=== PATIENT | male | born 1935 | race Caucasian/White ===

== ENCOUNTER 2017-07-30 06:13 | Outpatient (CLI) | payer MEDICARE, OTHER ==
[~2017-07-30] VITALS: Ht 177.8 cm; Wt 93.6 kg
--- NOTE | ~2017-07-30 | HEMODYNAMI ---
PATIENT:DESTINI MATT MEDICAL RECORD: [id number] : 35 LOCATION:DCASEY ADMISSION DATE: 07/30/17 Generatedon:07/30/20178:42 Patient name: DESTINI MATT Patient #: [id number] SSN: : 1935 Date of study: 07/30/2017 Page: Of Hemodynamic Procedure Report Patient Data Patient Demographics Procedure consent was obtained First Name: DESTINI Gender: Male Last Name: SHAKA : 1935 [facility] Initial: C Age: 82 year(s) Patient #: [id number] Race: Unknown Additional ID: [id number] Contact details Address: [address] [place] [address] [facility] State: [place] City: [place] Zip code: [address] Past Medical History Allergies Allergen Reaction Date Comments Reported Other allergy 07/30/2017 Lipitpr, pravachol, zocor, cortico steroids. Admission Admission Data Admission Date: 07/30/2017 Admission Time: 6:13 Admit Source: Other Lab Results Lab Result Date: 07/30/2017 Lab Result Time: 6:55 Biochemistry Name Units Result Min Max BUN mg/dl 24 --(----)-* 7 18 Creatinine mg/dl 1.1 --(--*-)-- 0.6 1.3 CBC Name Units Result Min Max Hematocrit % 38 *-(----)-- 42 54 Hemoglobin g/dl 13.1 -*(----)-- 13.5 17.5 Procedure Procedure Types Cath Procedure Diagnostic Procedure LHC LHC w/Coronaries Sedation Charges Moderate Sedation up to 15 minutes Peripheral Cath Diagnostic Procedure Cath Peripheral Four Vessel Arteriogram Procedure Description Procedure Date Procedure Date: 07/30/2017 Procedure Start Time: 8:17 Procedure End Time: 8:41 Procedure Staff Name Function Celio Cunningham MD Performing Physician Ernie Wolff RT Monitor Freya Anthony RT Scrub Casey Lance RN Nurse Procedure Data Cath Procedure Fluoroscopy Diagnostic fluoroscopy Total fluoroscopy Time: 5.9 time: 5.9 min min Diagnostic fluoroscopy Total fluoroscopy dose: 868 dose: 868 mGy mGy Contrast Material Contrast Material Type Amount (ml) Isovue 300 133 Entry Location Entry Primary Successful Side Size Upsize Upsize Entry Closure Succes sful Closure Location (Fr) 1 (Fr) 2 (Fr) Remarks Device Remarks Femoral Right 5 Fr Exoseal artery Estimated blood loss: 5 ml Diagnostic catheters Device Type Used For End Catheter Placement MULTIPACK JL 4.0 5Fr Procedure catheter MULTIPACK 3DRC 5Fr Procedure catheter MULTIPACK Pigtail 5 Fr Procedure catheter DIAGNOSTIC IM 5Fr Procedure catheter ([id number]) Procedure Complications No complications Procedure Medications Medication Administration Route Dosage 0.9% NaCl I.V. 100 ml/hr Oxygen etCO2 Nasal cannula 2 l/min Heparin Flush Bag added to field 2 bags (1000units/500ml NS) Lidocaine 2% added to field 20 Versed I.V. 1 mg Fentanyl I.V. 50 mcg Hemodynamics Rest HGB: 13.1 (g/dl) Heart Rate: 73 (bpm) Pressure Samples Time Site Value (mmHg) Purpose Heart Use Rate(bpm) 8:27 LV 128/5,18 Snapshot 76 8:28 AO 103/55(72) Pullback 78 8:28 LV 118/3,13 Pullback 78 Gradients Valve Time Site 1 Site 2 Mean SEP/DFP Peak To Heart Use (mmHg) (sec/min) Peak Rate (mmHg) (bpm) Aortic 8:28 LV AO 18 7 15 78 118/3,13 103/55(72) Calculations Valve P-P Mean Valve Index Valve Source Name Gradient Area Flow (cm2) Aortic 15 18 15 18 Snapshots Pre Cath Intra NCS Post Cath Vital Signs Time Heart Resp SPO2 etCO2 NIBP Rhythm Pain Sedation Rate (ipm) (%) (mmHg) (mmHg) Status Level (bpm) 8:01:32 72 17 97 39 132/74(99) NSR 0 (11) 10(A) , No pain 8:06:11 75 18 98 37.5 127/76(93) NSR 0 (11) 10(A) , No pain 8:10:50 73 19 97 37.5 112/64(81) NSR 0 (11) 10(A) , No pain 8:15:26 74 19 97 36.8 104/62(78) NSR 0 (11) 10(A) , No pain 8:20:00 76 19 96 32.3 113/68(81) NSR 0 (11) 9(A) , No pain 8:24:37 78 18 96 35.2 113/64(90) NSR 0 (11) 9(A) , No pain 8:29:14 73 19 95 33 107/63(80) NSR 0 (11) 9(A) , No pain 8:33:50 73 19 95 33.8 116/65(90) NSR 0 (11) 10(A) , No pain 8:38:27 71 18 96 35.2 112/66(91) NSR 0 (11) 10(A) , No pain Medications Time Medication Route Dose Verified Delivered Reason Notes Effe ctiveness by by 8:00:52 0.9% NaCl I.V. 100 Casey Casey Per ml/hr Casi Lance physician RN RN 8:01:02 Oxygen etCO2 2 Casey Casey Per Nasal l/min Casi Lance physician cannula RN RN 8:01:15 Heparin Flush added 2 Casey Casey used for Bag to bags Lorigan Casi procedure (1000units/500ml field RN RN NS) 8:01:27 Lidocaine 2% added 20ml Casey Casey for local to vial Lorigan Lorigan anesthetic field RN RN 8:11:44 Versed I.V. 1 mg Casey Casey for Lorigan Lorigan sedation RN RN 8:11:53 Fentanyl I.V. 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 7:38:29 H&P Date Dictated: 07/28/2017 Within 30 days and on chart., H&P Addendum completed by physician on day of procedure. (MUST COMPLETE FOR ALL OUTPATIENTS). 7:39:07 Lab Result : BUN 24 mg/dl 7:39:07 Lab Result : Creatinine 1.1 mg/dl 7:39:07 Lab Result : Hematocrit 38 % 7:39:07 Lab Result : Hemoglobin 13.1 g/dl 7:39:39 Casey Lance RN sent for patient. Start room use. 7:44:49 Patient received from Pre/Post Procedure Room to CCL 1 Alert and oriented. Tansferred to table in Supine position. 7:44:50 Warm blankets applied, and griselda hugger turned on for patient comfort. 7:44:51 Correct patient and procedure confirmed by team. 7:44:51 ECG and BP/O2 sat monitors applied to patient. 8:00:40 Vital chart was started 8:00:52 0.9% NaCl 100 ml/hr I.V. was administered by Casey Lance RN; Per physician; 8:01:02 Oxygen 2 l/min etCO2 Nasal cannula was administered by Casey Lance RN; Per physician; 8:01:15 Heparin Flush Bag (1000units/500ml NS) 2 bags added to field was administered by Casey Lance RN; used for procedure; 8:01:27 Lidocaine 2% 20ml vial added to field was administered by Casey Lance RN; for local anesthetic; 8:01:49 Baseline sample Acquired. 8:01:52 Rhythm: sinus rhythm 8:01:54 Full Disclosure recording started 8:01:55 Pre-procedure instructions explained to patient. 8:01:56 Pre-op teaching completed and patient verbalized understanding. 8:01:57 Family in waiting room. 8:01:58 Patient NPO since Midnight. 8:02:41 Patient allergic to Other allergyLipitpr, pravachol, zocor, cortico steroids. 8:02:43 Is the patient allergic to Iodine/contrast media? Yes. 8:02:44 Was the patient premedicated? Yes 8:02:45 Is patient on blood thinner?No 8:02:47 Patient diabetic? Yes. 8:02:49 If diabetic: On Metformin? Yes 8:03:00 If on Metformin: Last Dose? 07/23/2017 8:03:03 Previous problem with sedation/anesthesia? No ? 8:03:04 Snore? Yes 8:03:05 Sleep apnea? No 8:03:06 Deviated septum? No 8:03:06 Opens mouth fully? Yes 8:03:07 Sticks out tongue? Yes 8:03:13 Airway obstruction? Yes COPD 8:03:51 Dentures? No ? 8:03:58 Pre procedure: left posterior tibial pulse 1+ Palpable, but thready & weak; easily obliterated 8:04:04 Pre procedure: right dorsailis pedis pulse 2+ Normal; easily identifiable; not easily obliterated 8:04:10 Patient pain scale 0/10 ?. 8:04:20 IV patent on arrival in left hand with 0.9% NaCl at [facility]. 8:04:22 Lab results completed and on chart. 8:04:25 Bilateral groins area was prepped with chlora-prep and draped in sterile fashion 8:04:26 Alarms reviewed by R. N. 8:04:27 Sharps counted by scrub and verified by R.N. 8:04:29 Use device set Femoral Dx 8:04:29 ACIST Syringe (46965) opened to sterile field. 8:04:30 Bag Decanter (2002S) opened to sterile field. 8:04:30 Medline Cath Pack ([id number]) opened to sterile field. 8:04:35 ACIST Hand Control (85681) opened to sterile field. 8:04:35 ACIST Manifold (77854) opened to sterile field. 8:04:36 Tegaderm 4 x 4 (1626W) opened to sterile field. 8:04:39 SHEATH Prelude 5Fr 0.035 (QTK-4M-21-035) opened to sterile field. 8:04:40 DIAGNOSTIC WIRE .035 260cm J wire (423097) opened to sterile field. 8:04:41 DIAGNOSTIC Multipack 5Fr catheter set ([id number]) opened to sterile field. 8:08:28 Zero performed for pressure channel P1 8:11:17 Physician arrived 8:11:17 --------ALL STOP TIME OUT------ 8:11:18 Final Timeout: patient, procedure, and site verified with staff and physician. All members of the team are in agreement. 8:11:19 Bilateral groins site verified by team. 8:11:22 Physical assessment completed. ASA score P 2 - A patient with mild systemic disease as per Celio Cunningham MD. 8::26 Sedation plan: IV Moderate Sedation Medication:Versed, Fentanyl 8:11:44 Versed 1 mg I.V. was administered by Casey Lance RN; for sedation; 8::53 Fentanyl 50 mcg I.V. was administered by Casey Lance RN; for sedation; 8:17:41 Procedure started. 8:17:46 Local anesthetic to right femoral artery with Lidocaine 2% by Celio Cunningham MD.INITIAL ACCESS ONLY 8:19:02 A 5 Fr sheath was inserted into the Right Femoral artery 8:19:32 A MULTIPACK JL 4.0 5Fr catheter was advanced over the wire and used for Procedure. 8::32 LCA angiography performed. 8::41 Catheter exchanged over wire. 8::46 A MULTIPACK 3DRC 5Fr catheter was advanced over the wire and used for Procedure. 8:24:20 RCA angiography performed. 8:25:30 Catheter exchanged over wire. 8:26:01 A MULTIPACK Pigtail 5 Fr catheter was advanced over the wire and used for Procedure. 8:27:30 LV gram done using KAUR 8::32 Injector settings: Ml/sec: 10, Volume: 20, 8:27:38 EF : 60 % 8:28:04 Catheter exchanged over wire. 8:28:08 A DIAGNOSTIC IM 5Fr catheter ([id number]) was advanced over the wire and used for Procedure. 8:30:17 Right subclavian angiography performed 8:30:21 Right carotid angiography performed. 8:34:49 Left subclavian angiography performed 8:35:01 left vert angiography performed. 8:36:59 Catheter removed. 8:37:03 EXOSEAL 5Fr (EX500) opened to sterile field. 8:37:18 Sheath removed intact; hemostasis achieved with Exoseal to the Right Femoral artery. 8:37:20 Procedure ended.(Physican Out) 8:39:29 Fluoroscopy time 05.90 minutes. 8:39:33 Fluoroscopy dose: 868 mGy 8:39:33 Flurop Dose total: 868 8:39:38 Contrast amount:Isovue 300 133ml. 8:39:39 Sharps counted by scrub and verified by R.N. 8:39:40 Insertion/operative site no bleeding no hematoma. 8:39:42 Post-op/insertion site Right Femoral artery dressed using a 4 x 4 and Tegaderm. 8:39:47 Post right femoral artery:stable, soft, clean and dry 8:39:48 Post Procedure Pulses reassessed and unchanged 8:39:50 Post-procedure physical assessment completed. ASA score P 2 - A patient with mild systemic disease as per Celio Cunningham MD. 8:39:56 Post procedure rhythm: unchanged. 8:39:57 Estimated blood loss: 5 ml 8:39:59 Post procedure instruction explained to patient.Patient verbalizes understanding. 8:39:59 Patient needs reinforcement of post procedure teaching. 8:40:11 Procedure type changed to Cath procedure, Diagnostic procedure, LHC, LHC w/Coronaries, Sedation Charges, Moderate Sedation up to 15 minutes, Peripheral Cath Diagnostic Procedure, Cath Peripheral, Four Vessel Arteriogram 8:40:42 Procedure and supply charges have been captured, reviewed, submitted and are correct. 8:40:43 Procedure Complication : No complications 8:40:45 Vital chart was stopped 8:40:45 See physician's report for complete and final results. 8:40:47 Report given to Pre/Post Procedure Room. 8:41:03 Patient transfered to Pre/Post Procedure Room with Stretcher. 8:41:05 Procedure ended. 8:41:05 Full Disclosure recording stopped 8:41:26 End room use (Document Last) Device Usage Item Name Manufacture Quantity Catalog Number Hospital Part Current M inimal Lot# / Charge Number Stock Stock Serial# Code ACIST Syringe Acist 1 60871 150270 487794 [id number] 2 0 (24015) [employer] Bag Decanter Microtek 1 2001S 865993 26424 048935 5 () Medical Inc. Medline Cath Cardinal 1 [id number] 083995 27772 885694 5 [facility] ([id number]) ACIST Hand Acist 1 82256 749767 440781 195495 5 Control (51197) [employer] ACIST Manifold Acist 1 32186 547741 570075 797715 5 (86263) [employer] Inc Tegaderm 4 x 4 3M 1 1626W 360315 694444 274079 5 (1626W) SHEATH Prelude Merit 1 NPZ-6W-68-035 081316 777720 365058 5 5Fr 0.035 Medical (SSD-8N-63-035) DIAGNOSTIC WIRE St Alejandro 1 167698 884058 460689 335321 3 0 .035 260cm J wire (673077) DIAGNOSTIC Cardinal 1 [id number] 294406 20115 064414 3 0 Multipack 5Fr Health catheter set (NV9856) MULTIPACK JL Cardinal 1 248498 5 4.0 5Fr Health catheter MULTIPACK 3DRC Cardinal 1 260206 5 5Fr catheter Health MULTIPACK Cardinal 1 [id number] 5 Pigtail 5 Fr Health catheter DIAGNOSTIC IM Cardinal 1 [id number] 864403 541328 951185 5 5Fr catheter Health (350741M) EXOSEAL 5Fr Cardinal 1 EX500 090429 364459 683730 1 0 (EX500) Health Signature Audit [place] Stage Time Signature Unsigned Intra-Procedure 07/30/2017 Ernie Wolff 8:42:49 AM RT(R) Signatures Monitor : Ernie Wolff RT Signature : Date : Time : [place] [id number] [place] [address]
[~2017-07-30 06:13] MED LIST: DIOVAN160 MG PO
[2017-07-30] MEDS ORDERED: LOPRESSOR25 MG PO (06:22)
[2017-07-30] MEDS ORDERED: CARDURA1 MG PO (06:23)
[2017-07-30] MEDS ORDERED: BAYER CHEWABLE81 MG PO (06:23)
[2017-07-30] MEDS ORDERED: ZETIA10 MG PO (06:23)
[2017-07-30] MEDS ORDERED: CO Q-1050 MG (06:24)
[2017-07-30] MEDS ORDERED: GLUCOPHAGE500 MG PO (06:24)
[2017-07-30] MEDS ORDERED: OCUVITE TABLET1 TA1 PO (06:24)
[2017-07-30 06:44] VITALS: BP 164/90; Ht 177.8 cm; Wt 93.6 kg
[2017-07-30 07:04] LABS: HEMOGLOBIN 13.1 g/dL (13.5-17.5); MCH 33.7 pg (26.0-34.0); MCHC 34.5 g/dL (31.0-37.0); MCV 97.7 fL (80.0-100.0); MEAN PLATELET VOLUME 10.6 fL (7.4-10.4); PLATELET COUNT 111 10x3/uL (130-400); RBC 3.89 10x6/uL (4.20-6.10); RDW 12.5 % (11.5-14.5); WBC 6.7 10x3/uL (4.8-10.8)
[2017-07-30 07:16] LABS: ANION GAP 12.4 mmol/L (8-16); CARBON DIOXIDE 25.9 mmol/L (21.0-32.0); CREATININE - SERUM 1.1 mg/dL (0.6-1.3); POTASSIUM - SERUM 4.3 mmol/L (3.5-5.1)
[2017-07-30 08:19] LABS: LYMPHOCYTES 52 % (15-50); MONOCYTES 14 % (2-11); NEUTROPHILS 32 % (40-80)
[2017-07-30 08:20] LABS: PLATELET ESTIMATE DECREASED; ROULEAUX OCC
== END 2017-07-30 11:58 | disposition home or self-care (01) ==
LOC: D.CATH 06:13
PROVIDERS: Internal Medicine Cardiovascular Disease
DX: I25.119 Atherosclerotic heart disease of native coronary artery with unspecified angina pectoris (principal); R55 Syncope and collapse; Z01.812 Encounter for preprocedural laboratory examination

== ENCOUNTER → 2017-08-05 09:07 | Outpatient (CLI) | payer MEDICARE, OTHER ==
[2017-07-30 06:44] VITALS: BMI 29.6
[~2017-08-05 09:07] MED LIST changes: +ATROVENT 0.02%2.5 ML UPD; +BAYER CHEWABLE81 MG PO; +CARDURA1 MG PO; +CO Q-1050 MG; +COLACE100 MG PO; +CORDARONE200 MG PO; +DULCOLAX10 MG/SUPP RC; +ELIQUIS5 MG PO; +FLORAJEN3 CAPS460 MG PO; +GLUCOPHAGE500 MG PO; +LASIX40 MG PO; +LEVAQUIN750 MG PO; +LOPRESSOR25 MG PO; +METAMUCIL PACKE1 PKT PO; +OCUVITE TABLET1 TA1 PO; +ROBITUSSIN DM 110 ML PO; +TESSALON PERLE100 MG PO; +VOLTAREN100 GM TOPICAL; +XOPENEX 0.0.63 MG/3 UPD; +ZETIA10 MG PO
== END | disposition home or self-care (01) ==
LOC: D.CT 09:07
DX: I65.23 Occlusion and stenosis of bilateral carotid arteries (principal)

== ENCOUNTER 2017-08-14 05:00 | Inpatient (IN) | payer MEDICARE, OTHER ==
[2017-08-13 12:40] LABS: BASOPHILS 0.2 % (0-2); EOSINOPHILS 3.2 % (0-7); HEMATOCRIT 38.5 % (42.0-54.0); HEMOGLOBIN 13.2 g/dL (13.5-17.5); IMMATURE GRANULOCYTES 0.2 % (0-5); LYMPHOCYTES 61.5 % (15-50); MCH 33.6 pg (26.0-34.0); MCHC 34.3 g/dL (31.0-37.0); MEAN PLATELET VOLUME 10.9 fL (7.4-10.4); MONOCYTES 6.8 % (2-11); NEUTROPHILS 28.1 % (40-80); PLATELET COUNT 106 10x3/uL (130-400); RBC 3.93 10x6/uL (4.20-6.10); RDW 12.5 % (11.5-14.5); WBC 5.3 10x3/uL (4.8-10.8)
[2017-08-13 12:42] LABS: APPEARANCE CLEAR (CLEAR); BILIRUBIN NEGATIVE (NEGATIVE); COLOR YELLOW (YELLOW); GLUCOSE NEGATIVE (NEGATIVE); KETONE NEGATIVE (NEGATIVE); NITRITE NEGATIVE (NEGATIVE); PROTEIN NEGATIVE (NEGATIVE); UROBILINOGEN NORMAL (NORMAL)
[2017-08-13 12:54] LABS: APTT 29.1 SECONDS (22.8-39.4); INR 0.97 (0.85-1.17); PROTIME 12.5 SECONDS (11.6-15.0)
[2017-08-13 13:17] LABS: ALBUMIN 3.6 g/dL (3.4-5.0); ALKALINE PHOSPHATASE 82 U/L (46-116); ALT (SGPT) 63 U/L (10-68); CALC OSMOLALITY 279 mosm/kg (275-300); CARBON DIOXIDE 30.1 mmol/L (21.0-32.0); CHLORIDE - SERUM 104 mmol/L (98-107); CHOLESTEROL, TOTAL 247 mg/dL (0-200); PHOSPHOROUS 3.3 mg/dL (2.5-4.9); POTASSIUM - SERUM 4.1 mmol/L (3.5-5.1); SODIUM 139 mmol/L (136-145); T4 THYROXIN - FREE 1.01 ng/dL (0.76-1.46); THYROID STIMULATING HORMONE 2.26 uIU/mL (0.36-3.74); UREA NITROGEN 14 mg/dL (7-18); URIC ACID 5.1 mg/dL (2.6-7.2); eGFR NON AFRICAN AMERICAN 76 mL/min (90-120)
[2017-08-13 13:26] LABS: GLUCOSE 109 mg/dL (74-106)
[~2017-08-14] VITALS: Ht 177.8 cm; Wt 99.1 kg
[2017-08-14] VITALS (38 sets, daily range): BP systolic 66–146; BP diastolic 42–85; BMI 29.6; BMI 32.0
--- NOTE | ~2017-08-14 | CN ---
PATIENT NAME:DESTINI NAIR MEDICAL RECORD: [id number] : 35 LOCATION:[facility].CV02 ADMIT DATE: 08/14/17 ACCOUNT: [id number] CONSULTING PHYSICIAN: BLAYNE ZAVALETA MD REFERRING PHYSICIAN: TONY GODDARD MD DATE OF CONSULTATION: 08/19/2017 CONSULT REQUESTING PHYSICIAN: Tony Goddard MD REASON FOR CONSULTATION: Acute respiratory distress. HISTORY OF PRESENT ILLNESS: Mr. Nair is an 82-year-old gentleman who has a CABG on 14 of August. He was doing fairly, today he was sitting in his chair and when the patient went to bed, the patient was dyspneic and shortness of breath. Chest radiograph showed pulmonary edema. Denies any fever and chill, no night sweats. REVIEW OF SYSTEMS: As in history of present illness. PAST MEDICAL HISTORY: 1. Coronary artery disease. 2. Peripheral vascular disease. 3. Osteoarthritis. 4. CA of prostate. 5. History of transient ischemic attack. 6. Diabetes mellitus. 7. Hypertension. 8. Hyperlipidemia. 9. Peripheral neuropathy. 10. Tricuspid regurgitation. PAST SURGICAL HISTORY: 1. He has a prostatectomy, now he is status post CABG. 2. He has a knee arthroscopic surgery. ALLERGIES: ALLERGIC TO CRESTOR, HYDROCHLOROTHIAZIDE, LIPITOR, LISINOPRIL, AND NYSTATIN. MEDICATIONS: [employer] is reviewed. PERSONAL AND SOCIAL HISTORY: The patient is an ex-smoker. He is a nondrinker. FAMILY HISTORY: Noncontributory. PHYSICAL EXAMINATION: GENERAL: Now, the patient is now lying comfortably in bed. He is not in acute distress, wearing a BiPAP machine. VITAL SIGNS: The blood pressure is 113/57, pulse is 94, respiration is 33, temperature of 100.4, SpO2 is 100% on BiPAP 40% oxygen. HEENT: Conjunctivae are pink. Sclerae are not icteric. NECK: Supple, no JVD. CHEST: The chest excursion is minimal and both have bilateral crackles. No wheezing. HEART: Rhythm regular, normal sound, no murmur. ABDOMEN: Soft, bowel sounds present. No hepatosplenomegaly. CONSULT REPORT [id number] DESTINI NAIR RECTAL: Deferred. EXTREMITIES: No cyanosis, no clubbing, 1+ pedal edema. CENTRAL NERVOUS SYSTEM: The patient is awake and alert. There are no obvious cranial nerve abnormality. The gait was not tested. IMPRESSION: 1. Acute hypoxic respiratory failure. 2. Pulmonary edema, possible fluid overload on the cardiac echo of the patient and normal left ventricular function, possible diastolic dysfunction. 3. Status post CABG on the 14 of August. 4. Coronary artery disease. 5. Suspect chronic obstructive pulmonary disease with a history of smoking. 6. Peripheral vascular disease. RECOMMENDATION: 1. Lasix 40 mg p.r.n. 2. Change the albuterol nebulizer p.r.n. Start him on Xopenex and ipratropium nebulizer q.6 hourly. 3. Hold steroid. 4. Continue Protonix. 5. Deep venous thrombosis prophylaxis. 6. Follow up on labs and chest radiograph. Discussed with Dr. Goddard. Dr. Goddard, thank you for involving me in the care of Mr. Nair. TRANSINT:[id number] Voice Confirmation ID: [id number] DOCUMENT ID: [id number] BLAYNE ZAVALETA MD at 1218 CC: [id number] DICTATION DATE: 08/19/17 1646 PATIENT SERVICES MANAGER: 08/19/17 1706 ADM IN [facility] [address] [id number]
--- NOTE | ~2017-08-14 | OP ---
PATIENT NAME: DESTINI MATT MEDICAL RECORD: [id number] :35 LOCATION:D.I D.CV02 ADMISSION DATE:08/14/17 SURGEON: TONY CAMARGO MD DATE OF OPERATION: 08/14/2017 SURGEON: Tony Camargo MD ANESTHESIA: General endotracheal, Dr. Barnett. OPERATION PERFORMED: 1. Coronary artery bypass. 2. Left internal thoracic, left anterior descending. 3. Reverse saphenous vein graft to the first diagonal. 4. Reverse saphenous vein graft to the obtuse marginal coronary artery. PREOPERATIVE DIAGNOSES: Occlusive coronary artery disease with angina equivalent shortness of breath. POSTOPERATIVE DIAGNOSES: Occlusive coronary artery disease with angina equivalent shortness of breath. INDICATION FOR OPERATION: Severe occlusive coronary artery disease. FINDINGS OF THE OPERATION: The left anterior descending was intramyocardial, but was a 2-mm graftable vessel. The first diagonal was severely and diffusely diseased proximally, but distally, intra-myocardially, there was a 3-mm vessel and graftable. The first obtuse marginal was a 1.5-mm vessel and graftable. The ramus was not identified. The lesion in the posterior descending coronary artery was too distal to bypass. ESTIMATED BLOOD LOSS: Cell Saver was used. DESCRIPTION OF PROCEDURE: After informed consent, adequate preoperative medication evaluation, the patient was brought to the operating room and placed on the table in the supine position. After induction of general endotracheal anesthesia and application of appropriate monitoring devices, the chest, neck, abdomen, and both legs were prepped and draped in sterile field, utilizing Betadine scrub, alcohol, and Betadine solution, a Betadine-impregnated drape was also used. Saphenous vein was harvested from right leg through small transverse incisions. Vein was repaired. The leg was closed over drains utilizing 3-0 Vicryl and skin cely. A median sternotomy incision was used and dissection carried down the fascia. Hemostasis maintained with electrocautery. The sternum was divided, the innominate vein was identified and protected. Left internal thoracic was taken down and prepared for grafting. The patient was given a calculated dose of heparin, cannulated in a standard fashion utilizing one aortic, one two-stage cannula in the atrium and inferior vena cava. The patient was placed on cardiopulmonary bypass, cooled to 32 degrees centigrade. A cross-clamp was placed just proximal to the aortic cannula. The patient was given cardioplegic solution through the aortic root. The patient was given a cold induction and cold maintenance. The patient was given cold intermittent cardioplegic solution throughout the procedure through the root, through the grafts or a combination of both. The first vessel to be grafted was the obtuse marginal, it was grafted end-to-side utilizing a running 7-0 Prolene suture. The grafts were measured back to the aorta and a proximal anastomosis fashioned utilizing running 6-0 Prolene suture. Next, the first diagonal was grafted OPERATIVE REPORT [id number] DESTINI MATT end-to-side utilizing a running 7-0 Prolene suture. Grafts were measured back to the aorta and a proximal anastomosis fashioned utilizing running 6-0 Prolene suture. Next, left internal thoracic was sutured to the left anterior descending end-to-side utilizing a running 8-0 Prolene suture. Pedicle was attached to epicardium with 6-0 Prolene suture. All maneuvers to remove trapped air were performed. The patient was given warm cardioplegic reperfusion and controlled reperfusion. The patient rewarmed to 37 degrees centigrade. Two atrial and 2 ventricular pacing wires were placed in the heart and brought through the epigastric area. The patient was weaned cardiopulmonary bypass. After being stable off bypass, he was given calculated dose of protamine to reverse the heparin. Hemostasis was achieved. A #40 right angle and #36 chest tubes were brought in through the epigastric area and placed in mediastinum. A separate 19 Manny was placed in the left hemithorax connected under water seal and suction. Chest was again irrigated. Instrument count and sponge count were correct times 2. Chest was closed in layers utilizing #7 wire on the sternum, #2 Vicryl in linea alba and pectoralis fascia. Subcutaneous tissue was approximated with 3-0 Vicryl and skin approximated with 3-0 subcuticular Vicryl. Sterile dressings were applied. The patient tolerated the procedure well and was transferred to CV ICU in satisfactory condition. TRANSINT:[id number] Voice Confirmation ID: [id number] DOCUMENT ID: [id number] TONY CAMARGO MD at 1358 CC: [id number] DICTATION DATE: 08/14/17 1438 SCIENCE MANAGER: 08/14/17 1518 ADM IN [place] [id number]
--- NOTE | ~2017-08-14 | EC ---
PATIENT:DESTINI MATT DATE OF SERVICE: 08/14/17 SEX: M MEDICAL RECORD: [id number] DATE OF : 35 [facility] AGE OF PATIENT: 82 ADMISSION DATE: 08/14/17 REFERRING PHYSICIAN: INTERPRETING PHYSICIAN: SARAH BARBA MD ECHOCARDIOGRAM REPORT ECHO CHARGES 5 ECHO LIMITED Date: 08/15 CLINICAL DIAGNOSIS: ASSESS FOR PERICARDIAL EFF, POST CABG ECHOCARDIOGRAPHIC MEASUREMENTS (adult normal given) AC root (d.<3.7cm) cm LV Septum d (<1.2 cm> cm Valve Excursion cm LV Septum (systole) cm Left Atria (s.<4.0cm> cm LVPW d(<1.2cm) cm RV (d.<2.3cm) cm LVPW (sytole) cm LV diastole(<5.6CM) cm MV E-F(>70mm/sec) cm LV systole cm LVOT Diameter cm MV exc.(>10mm) cm Est.ejection fraction (50-75%) % DOPPLER: LVIT cm/sec A cm/sec E cm/sec LA cm/sec RVSP mmHg LVOT cm/sec AOP1/2T m/s Asc. Ao cm/sec RVOT cm/sec RA cm/sec PA cm/sec AV Gradient Peak mmHg AV Mean mmHg AV Area cm MV Gradient Peak mmHg MV Mean mmHg MV Area cm COMMENTS: RUPESH Director Experimental Medicine: 2 NALLELY LOPEZ Component Technician: 4 Dr. Barba TAPE# PACS Pericardial Effusion N DATE OF SERVICE: PROCEDURE: Transthoracic echocardiogram, limited study. FINDINGS: Images were very poor, but appears that the LV function is grossly normal. There is no obvious pericardial effusion. Again, this is a very poor echocardiogram. Contrast evaluation may be helpful if clinically indicated. TRANSINT:[id number] Voice Confirmation ID: [id number] DOCUMENT ID: [id number] ECHOCARDIOGRAM REPORT [id number] SHAKADESTINI SARAH OLIVO MD at 0927 CC: [id number] DICTATION DATE: 08/16/17 1050 CARDIOVASCULAR TECHNICIAN: 08/16/17 1108 ADM IN [id number] [place] [address]
--- NOTE | ~2017-08-14 | TEE ---
PATIENT:DESTINI MATT MEDICAL RECORD: [id number] LOCATION:[place] [address] AGE OF PATIENT: 82 ADMISSION DATE: 08/14/17 SEX: M REFERRING PHYSICIAN: INTERPRETING PHYSICIAN: ANGY PEÑA MD TRANSESOPHAGEAL ECHOCARDIOGRAM Date: 08/14/17 FRANCISCO JAVIER CHARGE Y INDICATIONS: CABG PREMEDICATIONS: PATIENT'S RESPONSE PROCEDURE DOPPLER MEASUREMENTS: LVIT LA PA RA LVOT RVOT Asc. Ao AV Gradient Peak AV Mean AV Area MV Gradient Peak MV Mean MV Area INTERPRETATION: Doppler: 2-D: EF 60+ COLOR FLOW DOPPLER TRACE MR NORMAL SALINE STUDY: MISCELLANOUS: DIAGNOSIS: PLAN: Agriculture Department Chair:Boo Cunningham Drone Software Development Engineer: Boo LOPEZ COMMENTS: RUPESH DATE OF SERVICE: 08/14/2017 PROCEDURE: Transesophageal echo evaluation of valvular structures during bypass surgery. FINDINGS: 1. Left ventricular chamber size is within normal limits. Left ventricular systolic function is normal. Overall ejection fraction estimated at 60%. 2. Left atrium, right atrium, and right ventricle chamber sizes are within TRANSESOPHAGEAL ECHOCARDIOGRAM REPORT [id number] DESTINI MATT normal limits. 3. Valvular structures have normal structure and motion. 4. Doppler interrogation reveals only trace mitral regurgitation, no other valvular insufficiency or stenosis. 5. No evidence of pericardial effusion or left ventricular thrombus. TRANSINT:[id number] Voice Confirmation ID: [id number] DOCUMENT ID: [id number] at 1713 CC: [id number] DICTATION DATE: 08/14/17 1058 ROLL RECLAIMER: 08/14/17 1106 ADM IN [place] [id number] [place] [address]
--- NOTE | ~2017-08-14 | HP ---
PATIENT: DESTINI MATT MEDICAL RECORD: [id number] ACCOUNT: [id number] LOCATION:[facility].CV02 : 35 ADMISSION DATE: 08/14/17 HISTORY AND PHYSICAL EXAMINATION DESTINI Turner (82yo, M) ID# [id number]. Date/Time08/11/2017 11:12BQQQI44/27/193[facility] Dept.NP_[facility] ClinicProviderEDKAILEY GODDARD MDInsuranceMed Primary: [place]ICARE-[place] (MEDICARE) Insurance # : [id number] Referring Provider Name : CLAUDIA TOLEDO Employer Name : UNKNOWN Med Secondary: WPAS (MEDICARE SUPPLEMENT) Insurance # : [id number] Employer Name : UNKNOWN Prescription: [employer] - This member could not be found in the payer's files. Please verify coverage and all member demographic information. Chief Complaint Coronary artery disease, Carotid stenosis Patient's Care Team Referring Provider (): CLAUDIA TOLEDO: [address] [place] [phone], , Gelatin Maker Utility: FE ELIZALDE MD: [address] [place] [phone], , Patient's Pharmacies [facility] (ERX): [phone] [facility] [id number], , Vitals BP:158/98 sitting R arm 08/11/2017 11:38 am 182/92 sitting L arm 08/11/2017 11:39 amBP Cuff Size:adult 08/11/2017 11:38 am adult 08/11/2017 11:39 amHR:88,irreg 08/11/2017 11:40 amHt:5 ft 10 in 08/11/2017 11:40 amWt:206.2 lbs 08/11/2017 11:40 amNotes:having episodes of chest pain related to exertion, also SOB with exertion legs hurt with walking other than on flat 08/11/2017 11:42 amBMI:29.6 08/11/2017 11:40 amAllergies Reviewed Allergies RONALD INHIBITORSCORTICOSTEROIDS (GLUCOCORTICOIDS)LIPITORPRAVACHOLZOCOROpiods-states "stop breathing"Medications Reviewed Medications ufgsrrg20/19/18 enteredErika WatkinsCo Q- enteredErika Watkinsdoxazosin 1 mg tablet Take 1 tablet(s) every day by oral route.08/11/17 enteredErika WatkinsmetFORMIN 500 mg tablet Take 1 tablet(s) every day by oral route.08/11/17 enteredErika Watkinsmetoprolol succinate 50mg daily08/11/17 enteredErika PcdilpmJfhclts08/19/18 enteredKathy Wilsonvalsartan 160 mg tablet Take 1 tablet(s) every day by oral route.08/11/17 enteredErika WatkinsZetia 10 mg tablet Take 1 tablet(s) every day by oral route.08/11/17 enteredErika WatkinsProblems Reviewed Problems Carotid artery stenosis - Onset: 08/11/2017 Transient cerebral ischemia Malignant tumor of prostate Coronary atherosclerosis Hyperlipidemia HISTORY AND PHYSICAL [id number] DESTINI MATT Essential hypertension Fatigue Family History Reviewed Family History Father- Coronary atherosclerosisMother- Essential hypertension - Cerebrovascular accidentSocial History Reviewed Social History Cardiology and General Family history of heart disease?: Y Smoking Status: Former smoker (Notes: quit 1971) High Cholesterol: Y High blood pressure: Y Diabetes: N Surgical History Reviewed Surgical History RETROPUBIC PROSTATECTOMY ARTHROSCOPIC KNEE Past Medical History Reviewed Past Medical History COPD: Y Cancer: Y - prostate Chest Pain: Y Coronary Artery Disease: Y Eye Problems: Y Heart Disease: Y High Blood Pressure: Y Hyperlipidemia: Y Hypertension: Y Joint Pain or Swelling: Y Pain in legs when walking: Y Shortness of Breath: Y Documents for Discussion Discussed the following documents: US, DUPLEX, CAROTID ARTERY - 08/05/17 Notes - satisfactory bilaterally for coronary bypass Need yearly Dopplers DOCUMENT LABEL NOT LISTED - 07/30/17 Notes - LT HEART CATH W/ 4-VESSEL CAROTID severe occlusive coronary artery disease especially left anterior descending first diagonal and ramus coronary artery Distal right coronary artery lesion is not bypassable in the posterior descending CT, ANGIOGRAM, CHEST, W/WO CONTRAST - 07/19/17 Notes - there is a patent left common carotid artery bovine branching of the carotid arteries CT, CHEST, W/O CONTRAST - 07/17/17 Screening None recorded. HPI Cerebral Vascular Disease Reported by patient. Associated Symptoms: no headache; no nausea; no vomiting; no tinnitus; no difficulty speaking; no lethargy; no fever; no chills; no palpitations; no syncope; no loss of consciousness Coronary Artery Disease F/U Reported by patient. HISTORY AND PHYSICAL [id number] DESTINI MATT Severity: symptoms are improving; chest discomfort with household activities/yard work Context: non-smoker Associated Symptoms: chest pain with exertion coronary artery disease with substernal chest discomfort and shortness of breath with exercise ROS Patient reports exercise intolerance but reports no fever, no night sweats, no significant weight gain, and no significant weight loss. He reports chest pain on exertion and shortness of breath when walking but reports no arm pain on exertion, no shortness of breath when lying down, no palpitations, and no known heart murmur. He reports shortness of breath but reports no cough, no wheezing, and no coughing up blood. He reports muscle aches, muscle weakness, and arthralgias/joint pain but reports no back pain and no swelling in the extremities. He reports no dry eyes, no irritation, and no vision change. He reports n o difficulty hearing and no ear pain. He reports no frequent nosebleeds and no nose/sinus problems. He reports no sore throat, no bleeding gums, no snoring, no dry mouth, no mouth ulcers, no oral abnormalities, and no teeth problems. He reports no jugular vein distension and no swollen glands. He reports no abdominal pain, no vomiting, normal appetite, no diarrhea, not vomiting blood, no nausea, and no constipation. He reports no incontinence, no difficulty urinating, no hematuria, and no increased frequen c y. He reports no abnormal mole, no jaundice, and no rashes. He reports no loss of consciousness, no weakness, no numbness, no seizures, no dizziness, and no headaches. He reports no depression, no sleep disturbances, feeling safe in relationship, and no a lcohol abuse. He reports no fatigue. He reports no swollen glands and no bruising. He reports no runny nose, no sinus pressure, no itching, no hives, and no frequent sneezing. ROS as noted in the HPI Physical Exam Patient is an 82-year-old male. Constitutional: General Appearance well nourished and developed and healthy-appearing. Level of Distress NAD. Ambulation ambulating normally. Cardiovascular: Apical Impulse not displaced or no thrill. Heart Auscultation normal s1 and s2; no murmurs, rubs, or santiago ps; and RRR. Arterial Pulses no abdominal aorta bruits, femoral bruits, or popliteal bruits and 2+ bilateral, carotid 2+ bilateral, femoral 2+ bilateral, popliteal 2+ bilateral, and dorsalis pedis 2+ bilateral. Edema no edema or varicosities. Lungs: Repir atory Effort no dyspnea. Percussion no hyperresonance or dullness or flatness. Auscultation no wheezing, rhonchi, or rales / crackles and breathing sounds normal, good air movement, and CTA except as noted. Abdomen: Bowl Sounds normal. Inspection and Palpation no tenderness, guarding, masses, or rebound tenderness and soft and non-distended; diastases recti. Liver non-tender and no hepatomegaly. Spleen non-tender and no splenomegaly. Hernia diastases recti. Musculoskeletal System: Gait And Stance normal gait and stance. Digits and Nails normal nails and no cyanosis. Neurologic: Cranial Nerves grossly intact. Reflexes DTRs 2+ bilaterally throughout. Sensation grossly intact. HISTORY AND PHYSICAL [id number] DESTINI MATT Lymph Nodes: Lymph Nodes no cervical LAD, supraclavicular LAD, axillary LAD, or inguinal LAD. Eyes: Lids and Conjunctivae no discharge or pallor and non-injected. Pupils PERRLA. Cornea grossly intact. EOM EOMI. Lens clear. Sclerae non-icteric. Neck: Neck no masses, enlarged lymph nodes, or carotid bruits and supple and trachea midline. Thyroid no enlargement or nodules and non-tender. Skin: Inspection and Palpation no rash, lesions, ulcers, jaundice, or abnormal nevi. Assessment / Plan occlusive coronary artery disease with angina equivalent and shortness of breath 1. Coronary atherosclerosis I25.118: Atherosclerotic heart disease of [place] coronary artery with other forms of angina pectoris 2. Essential hypertension I10: Essential (primary) hypertension HIGH BLOOD PRESSURE: CARE INSTRUCTIONS LEARNING ABOUT HIGH BLOOD PRESSURE 3. Carotid artery stenosis I65.21: Occlusion and stenosis of right carotid artery CAROTID STENOSIS: CARE INSTRUCTIONS Discussion Notes severe occlusive coronary artery disease affecting the left anterior descending first diagonal and ramus coronary arteries. He has a distal lesion in his posterior descending coronary artery that is not bypassable. I have discussed his disease process with him and his in detail as well as the alternative methods of treatment. we discussed coronary ele ry bypass including the expected benefits and risks which included bleeding, infection, stroke, , and the imponderables. He understands all of the above and wishes to proceed with planned surgery. We will place him on the schedule for Thursday of this week. 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
--- NOTE | ~2017-08-14 | CN ---
PATIENT NAME:DESTINI MATT MEDICAL RECORD: [id number] : 35 LOCATION[facility] ADMIT DATE: 08/14/17 ACCOUNT: [id number] CONSULTING PHYSICIAN: FE TOLEDO MD REFERRING PHYSICIAN: TONY GODDARD MD DATE OF CONSULTATION: 08/16/2017 Medical Consultation ADMITTING PHYSICIAN: Tony Goddard MD REASON FOR CONSULTATION: Diabetic management post-CABG and recent left upper extremity weakness. HISTORY OF PRESENT ILLNESS: The patient is an 82-year-old male with history of PVD who had undergone cardiac evaluation by Dr. Cunningham involving evidence of significant calcified coronary artery disease. He recommended CABG due to calcified appearing coronary arteries. The patient underwent a CABG of the left internal thoracic to the LAD, reverse saphenous vein graft to the first diagonal, reverse saphenous graft to the obtuse marginal artery on 08/14/17. Postoperatively, he has done well, developed a large 2 liters hemothorax, which required chest tube placement yesterday. He has received 10 units of packed cells since that time and stabilized, but this morning at approximately 7:15 was noted to have a droop on his left face and weakness in his left upper extremity. He denies headache, visual changes. PAST MEDICAL HISTORY: CAD, peripheral vascular disease, osteoarthritis, cancer of the prostate post-prostatectomy, remote TIA, diabetes mellitus. 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 PAST SURGICAL HISTORY: CABG as above including knee arthroscopy and prostatectomy. ALLERGIES: CRESTOR, HYDROCHLOROTHIAZIDE, LIPITOR, LISINOPRIL, NYSTATIN. FAMILY HISTORY: Parents are . Father had heart disease. Mother had hypertension and stroke. SOCIAL HISTORY: Former smoker, quit in March 12, 1969. Not an alcohol drinker. He is retired, . HOME MEDICATIONS: Aspirin 81 mg a day, metoprolol ER 50 mg a day, doxazosin 1 mg p.o. h.s., Coenzyme Q10 100 mg p.o. daily, Zetia 10 mg a day, valsartan 160 mg twice a day and Ocuvite vitamin. REVIEW OF SYSTEMS: GENERAL: Currently, the patient has moderate postoperative pain. He denies headache. HEENT: No recent visual change, sinus congestion, or sore throat. Some trouble with his speech today due to left facial droop. RESPIRATORY: He has shortness of breath with deep inspiration and some pain in his left lateral chest wall. CARDIAC: Anterior chest wall pain as mentioned. CONSULT REPORT [id number] DESTINI MATT GASTROINTESTINAL: No nausea or vomiting. GENITOURINARY: Mathews in place. No current nocturia. MUSCULOSKELETAL: Arthralgias of lumbar spine and knees. INTEGUMENTARY: No rash. PSYCHIATRIC: Denies depressed mood. NEUROLOGIC: Recent onset of left facial droop and left upper extremity weakness. PHYSICAL EXAMINATION: VITAL SIGNS: His pulse is 93 beats per minute, respirations 21 and unlabored, blood pressure is 115/46 with a sat of 96% on supplemental oxygen, temperature is 100 degrees Fahrenheit. HEENT: Normocephalic. Eyes are clear. He has a left facial and lip droop. His tongue is midline. NECK: No carotid bruits appreciated. CHEST: Reveals decreased breath sounds in the left base. No wheezing. He has some retractions on deep inspiration. HEART: Regular rate. ABDOMEN: Soft, multiple lines and tubes noted. GENITOURINARY: Unremarkable. Mathews is intact. EXTREMITIES: He has 3+ edema of his upper extremities and hands, 2+ in lower extremities. NEUROLOGICAL: The patient is oriented to person, place, and time. Speech is clear. He has facial droop on the left. He is unable to lift his left arm or half section ironer. Left lower extremity shows fair quad strength, but less than on the right. His plantar flexion is good, 2+ bilaterally. Sensation is intact throughout. LABORATORY DATA AND DIAGNOSTIC STUDIES: Labs shows H and H of 8.8 and 27.0 with a white count 11,800, platelet count of 70. Chemistry: BUN and creatinine are 16 and 1. Glucose is 154 on insulin drip. INR is 1.29, PTT is 34.5. Urine was clear. Chest x-ray shows improvement in the appearance of the chest with volume loss in the left lower lobe post chest tube placement. ASSESSMENT: 1. Status post 3-vessel CABG. 2. Left hemothorax, resolving. 3. Acute left motor weakness suggesting right hemispheric CVA. 4. Diabetes mellitus. 5. Hypertension. 6. Thrombocytopenia. 7. Anemia due to surgical blood loss. PLAN: We will discuss with Dr. Goddard further neurologic workup. It would be difficult to move him for a CT brain at this time, but we will entertain that after discussion. I will talk daughter and granddaughter this morning. TRANSINT:[id number] Voice Confirmation ID: [id number] DOCUMENT ID: [id number] CONSULT REPORT [id number] DESTINI MATT TIMOTHY MD at 2224 CC: [id number] DICTATION DATE: 08/16/17 1054 SERVICER TRAVEL TRAILERS: 08/16/17 1123 ADM IN [place] [id number] [place] [id number]
[~2017-08-14 05:00] MED LIST changes: -ATROVENT 0.02%2.5 ML UPD; -COLACE100 MG PO; -CORDARONE200 MG PO; -DULCOLAX10 MG/SUPP RC; -ELIQUIS5 MG PO; -FLORAJEN3 CAPS460 MG PO; -LASIX40 MG PO; -LEVAQUIN750 MG PO; -METAMUCIL PACKE1 PKT PO; -ROBITUSSIN DM 110 ML PO; -TESSALON PERLE100 MG PO; -VOLTAREN100 GM TOPICAL; -XOPENEX 0.0.63 MG/3 UPD
[2017-08-14 08:02] LABS: PLT FUNCT.(P2Y12) PLAVIX 287 PRU (194-418)
[2017-08-14 14:11] LABS: CARBON DIOXIDE 28.4 mmol/L (21.0-32.0); CHLORIDE - SERUM 110 mmol/L (98-107); CREATININE - SERUM 0.9 mg/dL (0.6-1.3); SODIUM 146 mmol/L (136-145); UREA NITROGEN 14 mg/dL (7-18); eGFR NON AFRICAN AMERICAN 86 mL/min (90-120)
[2017-08-14 14:12] LABS: APTT 35.7 SECONDS (22.8-39.4); INR 1.33 (0.85-1.17)
[2017-08-14 14:13] LABS: CALC OSMOLALITY 297 mosm/kg (275-300); GLUCOSE 208 mg/dL (74-106); POTASSIUM - SERUM 4.8 mmol/L (3.5-5.1)
[2017-08-14 14:14] LABS: MCH 33.6 pg (26.0-34.0); MCHC 34.2 g/dL (31.0-37.0); MCV 98.2 fL (80.0-100.0); MEAN PLATELET VOLUME 10.8 fL (7.4-10.4); RDW 12.8 % (11.5-14.5)
[2017-08-14 14:15] LABS: HEMATOCRIT 27.2 % (42.0-54.0); HEMOGLOBIN 9.3 g/dL (13.5-17.5); RBC 2.77 10x6/uL (4.20-6.10); WBC 11.4 10x3/uL (4.8-10.8)
[2017-08-14 18:42] LABS: INR 1.57 (0.85-1.17); PROTIME 18.3 SECONDS (11.6-15.0)
[2017-08-14 18:44] LABS: APTT 48.3 SECONDS (22.8-39.4)
[2017-08-14 18:49] LABS: HEMATOCRIT 32.1 % (42.0-54.0); HEMOGLOBIN 10.6 g/dL (13.5-17.5)
[2017-08-14 20:59] LABS: BASOPHILS 0 % (0-2); EOSINOPHILS 0.1 % (0-7); IMMATURE GRANULOCYTES 0.1 % (0-5); LYMPHOCYTES 15.6 % (15-50); MCH 30.2 pg (26.0-34.0); MCHC 33.9 g/dL (31.0-37.0); MEAN PLATELET VOLUME 10.2 fL (7.4-10.4); NEUTROPHILS 75.2 % (40-80); RBC 2.75 10x6/uL (4.20-6.10); RDW 17.5 % (11.5-14.5)
[2017-08-14 21:02] LABS: INR 1.36 (0.85-1.17); PROTIME 16.3 SECONDS (11.6-15.0)
[2017-08-14 21:08] LABS: HEMATOCRIT 24.5 % (42.0-54.0); HEMOGLOBIN 8.3 g/dL (13.5-17.5); WBC 7.4 10x3/uL (4.8-10.8)
[2017-08-14 21:09] LABS: APTT 34.5 SECONDS (22.8-39.4); MCV 89.1 fL (80.0-100.0); PLATELET COUNT 91 10x3/uL (130-400)
[2017-08-15] VITALS (94 sets, daily range): BP systolic 73–137; BP diastolic 35–96; BMI 32.4
[2017-08-15 00:10] LABS: BASOPHILS 0 % (0-2); EOSINOPHILS 0 % (0-7); HEMATOCRIT 28.4 % (42.0-54.0); HEMOGLOBIN 9.6 g/dL (13.5-17.5); IMMATURE GRANULOCYTES 0.2 % (0-5); LYMPHOCYTES 21.6 % (15-50); MCHC 33.8 g/dL (31.0-37.0); MCV 85.8 fL (80.0-100.0); MEAN PLATELET VOLUME 9.8 fL (7.4-10.4); MONOCYTES 7.4 % (2-11); NEUTROPHILS 70.8 % (40-80); PLATELET COUNT 68 10x3/uL (130-400); RBC 3.31 10x6/uL (4.20-6.10); WBC 6.5 10x3/uL (4.8-10.8)
[2017-08-15 00:26] LABS: BASOPHILS 0 % (0-2); EOSINOPHILS 0 % (0-7); HEMATOCRIT 28.3 % (42.0-54.0); HEMOGLOBIN 9.7 g/dL (13.5-17.5); IMMATURE GRANULOCYTES 0.1 % (0-5); LYMPHOCYTES 20.3 % (15-50); MCH 29.3 pg (26.0-34.0); MCHC 34.3 g/dL (31.0-37.0); MCV 85.5 fL (80.0-100.0); MEAN PLATELET VOLUME 10.7 fL (7.4-10.4); MONOCYTES 9.3 % (2-11); NEUTROPHILS 70.3 % (40-80); PLATELET COUNT 73 10x3/uL (130-400); RBC 3.31 10x6/uL (4.20-6.10)
[2017-08-15 00:35] LABS: INR 1.29 (0.85-1.17); PROTIME 15.6 SECONDS (11.6-15.0)
[2017-08-15 00:47] LABS: ANION GAP 10.4 mmol/L (8-16); BILIRUBIN - TOTAL 1.1 mg/dL (0.2-1.3); CALCIUM 7.6 mg/dL (8.5-10.1); CARBON DIOXIDE 28.7 mmol/L (21.0-32.0); CREATININE - SERUM 1.1 mg/dL (0.6-1.3); POTASSIUM - SERUM 4.1 mmol/L (3.5-5.1)
[2017-08-15 00:50] LABS: ALBUMIN 2.5 g/dL (3.4-5.0); PROTEIN - SERUM 4.3 g/dL (6.4-8.2)
[2017-08-15 06:57] LABS: HEMOGLOBIN 10.4 g/dL (13.5-17.5); MCH 29.5 pg (26.0-34.0); MCHC 34.7 g/dL (31.0-37.0); MEAN PLATELET VOLUME 10.7 fL (7.4-10.4); RBC 3.53 10x6/uL (4.20-6.10); RDW 17.6 % (11.5-14.5)
[2017-08-15 06:59] LABS: WBC 10.9 10x3/uL (4.8-10.8)
[2017-08-15 07:24] LABS: ALBUMIN 2.4 g/dL (3.4-5.0); ALKALINE PHOSPHATASE 43 U/L (46-116); ALT (SGPT) 38 U/L (10-68); BILIRUBIN - TOTAL 1.04 mg/dL (0.2-1.3); CALC OSMOLALITY 293 mosm/kg (275-300); CALCIUM 7.6 mg/dL (8.5-10.1); CARBON DIOXIDE 28.6 mmol/L (21.0-32.0); CHLORIDE - SERUM 111 mmol/L (98-107); GLUCOSE 119 mg/dL (74-106); PROTEIN - SERUM 4.5 g/dL (6.4-8.2); SODIUM 147 mmol/L (136-145); UREA NITROGEN 14 mg/dL (7-18); eGFR NON AFRICAN AMERICAN 76 mL/min (90-120)
[2017-08-15 12:37] LABS: HEMATOCRIT 28.4 % (42.0-54.0); HEMOGLOBIN 9.6 g/dL (13.5-17.5); MCH 28.7 pg (26.0-34.0); MCHC 33.8 g/dL (31.0-37.0); MCV 84.8 fL (80.0-100.0); MEAN PLATELET VOLUME 10.8 fL (7.4-10.4); RBC 3.35 10x6/uL (4.20-6.10); RDW 17.6 % (11.5-14.5); WBC 10.1 10x3/uL (4.8-10.8)
[2017-08-15 18:45] LABS: HEMATOCRIT 27.4 % (42.0-54.0); HEMOGLOBIN 9.2 g/dL (13.5-17.5)
[2017-08-16] VITALS (98 sets, daily range): BP systolic 78–138; BP diastolic 37–76
[2017-08-16 00:33] LABS: HEMATOCRIT 27.6 % (42.0-54.0); HEMOGLOBIN 9.2 g/dL (13.5-17.5)
[2017-08-16 06:03] LABS: HEMATOCRIT 26.6 % (42.0-54.0); MCH 29.7 pg (26.0-34.0); MCHC 33.8 g/dL (31.0-37.0); MEAN PLATELET VOLUME 11.2 fL (7.4-10.4); RBC 3.03 10x6/uL (4.20-6.10); RDW 18.6 % (11.5-14.5); WBC 11.8 10x3/uL (4.8-10.8)
[2017-08-16 06:15] LABS: MCV 87.8 fL (80.0-100.0)
[2017-08-16 06:19] LABS: ALBUMIN 2.2 g/dL (3.4-5.0); ALKALINE PHOSPHATASE 49 U/L (46-116); ALT (SGPT) 30 U/L (10-68); CALC OSMOLALITY 290 mosm/kg (275-300); CALCIUM 7.4 mg/dL (8.5-10.1); CARBON DIOXIDE 30.6 mmol/L (21.0-32.0); CHLORIDE - SERUM 111 mmol/L (98-107); GLUCOSE 154 mg/dL (74-106); POTASSIUM - SERUM 4.3 mmol/L (3.5-5.1); PROTEIN - SERUM 4.7 g/dL (6.4-8.2); SODIUM 144 mmol/L (136-145); UREA NITROGEN 16 mg/dL (7-18); eGFR NON AFRICAN AMERICAN 76 mL/min (90-120)
[2017-08-16 07:55] LABS: HEMOGLOBIN 8.8 g/dL (13.5-17.5)
[2017-08-16 12:55] LABS: HEMATOCRIT 26.9 % (42.0-54.0); HEMOGLOBIN 8.8 g/dL (13.5-17.5)
[2017-08-16 19:05] LABS: HEMATOCRIT 31.9 % (42.0-54.0); HEMOGLOBIN 10.5 g/dL (13.5-17.5)
[2017-08-17] VITALS (85 sets, daily range): BP systolic 90–151; BP diastolic 42–91
[2017-08-17 01:08] LABS: HEMATOCRIT 30.3 % (42.0-54.0); HEMOGLOBIN 9.8 g/dL (13.5-17.5)
[2017-08-17 06:03] LABS: HEMOGLOBIN 9.6 g/dL (13.5-17.5); MCH 28.7 pg (26.0-34.0); MEAN PLATELET VOLUME 11.2 fL (7.4-10.4); RBC 3.34 10x6/uL (4.20-6.10); RDW 17.9 % (11.5-14.5)
[2017-08-17 06:32] LABS: ALBUMIN 2.1 g/dL (3.4-5.0); ANION GAP 6.3 mmol/L (8-16); BILIRUBIN - TOTAL 0.8 mg/dL (0.2-1.3); CALCIUM 7.5 mg/dL (8.5-10.1); CARBON DIOXIDE 30.9 mmol/L (21.0-32.0); CREATININE - SERUM 1.1 mg/dL (0.6-1.3); POTASSIUM - SERUM 4.2 mmol/L (3.5-5.1); PROTEIN - SERUM 4.7 g/dL (6.4-8.2)
[2017-08-17 06:43] LABS: MCV 89.8 fL (80.0-100.0)
[2017-08-17 13:24] LABS: HEMATOCRIT 29.4 % (42.0-54.0); HEMOGLOBIN 9.6 g/dL (13.5-17.5)
[2017-08-18] VITALS (52 sets, daily range): BP systolic 84–129; BP diastolic 32–72
[2017-08-18 05:58] LABS: HEMATOCRIT 28.4 % (42.0-54.0); HEMOGLOBIN 9.1 g/dL (13.5-17.5); MCH 29.3 pg (26.0-34.0); MCV 91.3 fL (80.0-100.0); MEAN PLATELET VOLUME 11.7 fL (7.4-10.4); RBC 3.11 10x6/uL (4.20-6.10); WBC 6.9 10x3/uL (4.8-10.8)
[2017-08-18 06:34] LABS: ALBUMIN 1.8 g/dL (3.4-5.0); ANION GAP 7.6 mmol/L (8-16); BILIRUBIN - TOTAL 0.71 mg/dL (0.2-1.3); CALCIUM 7.5 mg/dL (8.5-10.1); CARBON DIOXIDE 29.5 mmol/L (21.0-32.0); CREATININE - SERUM 1.2 mg/dL (0.6-1.3); POTASSIUM - SERUM 4.1 mmol/L (3.5-5.1); PROTEIN - SERUM 4.4 g/dL (6.4-8.2)
[2017-08-19] VITALS (26 sets, daily range): BP systolic 100–139; BP diastolic 42–69
[2017-08-19 05:42] LABS: HEMATOCRIT 28.6 % (42.0-54.0); HEMOGLOBIN 9.1 g/dL (13.5-17.5); MCHC 31.8 g/dL (31.0-37.0); MCV 91.1 fL (80.0-100.0); MEAN PLATELET VOLUME 11.1 fL (7.4-10.4); RBC 3.14 10x6/uL (4.20-6.10); RDW 17.4 % (11.5-14.5); WBC 6.6 10x3/uL (4.8-10.8)
[2017-08-19 06:21] LABS: ALBUMIN 1.8 g/dL (3.4-5.0); ANION GAP 9.1 mmol/L (8-16); BILIRUBIN - TOTAL 0.94 mg/dL (0.2-1.3); CALCIUM 7.3 mg/dL (8.5-10.1); CARBON DIOXIDE 30.1 mmol/L (21.0-32.0); CREATININE - SERUM 1.1 mg/dL (0.6-1.3); POTASSIUM - SERUM 4.2 mmol/L (3.5-5.1); PROTEIN - SERUM 4.5 g/dL (6.4-8.2)
[2017-08-20] VITALS (24 sets, daily range): BP systolic 96–137; BP diastolic 48–72; Ht 177.8 cm; Wt 99.1 kg
[2017-08-20 06:49] LABS: HEMATOCRIT 31.4 % (42.0-54.0); MCHC 31.8 g/dL (31.0-37.0); MEAN PLATELET VOLUME 10.9 fL (7.4-10.4); RBC 3.45 10x6/uL (4.20-6.10); RDW 17.2 % (11.5-14.5)
[2017-08-20 06:50] LABS: WBC 8.3 10x3/uL (4.8-10.8)
[2017-08-20 07:18] LABS: CALC OSMOLALITY 282 mosm/kg (275-300); CALCIUM 7.8 mg/dL (8.5-10.1); CARBON DIOXIDE 31.7 mmol/L (21.0-32.0); CHLORIDE - SERUM 101 mmol/L (98-107); GLUCOSE 154 mg/dL (74-106); MAGNESIUM - SERUM 2.5 mg/dL (1.8-2.4); POTASSIUM - SERUM 4.5 mmol/L (3.5-5.1); SODIUM 137 mmol/L (136-145); UREA NITROGEN 28 mg/dL (7-18); eGFR NON AFRICAN AMERICAN 76 mL/min (90-120)
[2017-08-21] VITALS (24 sets, daily range): BP systolic 92–132; BP diastolic 45–74
[2017-08-21 06:38] LABS: HEMATOCRIT 33.1 % (42.0-54.0); HEMOGLOBIN 10.5 g/dL (13.5-17.5); MCH 29.1 pg (26.0-34.0); MCHC 31.7 g/dL (31.0-37.0); MCV 91.7 fL (80.0-100.0); MEAN PLATELET VOLUME 11.2 fL (7.4-10.4); RBC 3.61 10x6/uL (4.20-6.10); RDW 17.4 % (11.5-14.5)
[2017-08-21 07:22] LABS: ANION GAP 8.6 mmol/L (8-16); CALCIUM 7.7 mg/dL (8.5-10.1); CARBON DIOXIDE 32.8 mmol/L (21.0-32.0); CREATININE - SERUM 1.1 mg/dL (0.6-1.3); MAGNESIUM - SERUM 2.6 mg/dL (1.8-2.4); POTASSIUM - SERUM 4.4 mmol/L (3.5-5.1)
[2017-08-22] VITALS (49 sets, daily range): BP systolic 72–119; BP diastolic 37–70
[2017-08-22 06:04] LABS: HEMATOCRIT 31.6 % (42.0-54.0); HEMOGLOBIN 10.1 g/dL (13.5-17.5); MCH 29.3 pg (26.0-34.0); MCV 91.6 fL (80.0-100.0); MEAN PLATELET VOLUME 11.2 fL (7.4-10.4); RBC 3.45 10x6/uL (4.20-6.10); RDW 17.5 % (11.5-14.5)
[2017-08-22 08:05] LABS: ANION GAP 9.2 mmol/L (8-16); CREATININE - SERUM 1.1 mg/dL (0.6-1.3); MAGNESIUM - SERUM 2.5 mg/dL (1.8-2.4); POTASSIUM - SERUM 4.2 mmol/L (3.5-5.1)
[2017-08-22 19:32] LABS: INR 1.3 (0.85-1.17); PROTIME 15.7 SECONDS (11.6-15.0)
[2017-08-23] VITALS (22 sets, daily range): BP systolic 87–132; BP diastolic 37–70
[2017-08-23 05:58] LABS: BASOPHILS 0.1 % (0-2); EOSINOPHILS 0.5 % (0-7); HEMATOCRIT 30.9 % (42.0-54.0); IMMATURE GRANULOCYTES 0.2 % (0-5); LYMPHOCYTES 24.9 % (15-50); MCH 29.4 pg (26.0-34.0); MCHC 32.4 g/dL (31.0-37.0); MCV 90.9 fL (80.0-100.0); MEAN PLATELET VOLUME 11.2 fL (7.4-10.4); MONOCYTES 6.5 % (2-11); NEUTROPHILS 67.8 % (40-80); PLATELET COUNT 184 10x3/uL (130-400); WBC 9.7 10x3/uL (4.8-10.8)
[2017-08-23 06:06] LABS: INR 1.18 (0.85-1.17); PROTIME 14.5 SECONDS (11.6-15.0)
[2017-08-23 06:15] LABS: CALC OSMOLALITY 273 mosm/kg (275-300); CALCIUM 7.9 mg/dL (8.5-10.1); CARBON DIOXIDE 34.7 mmol/L (21.0-32.0); CHLORIDE - SERUM 96 mmol/L (98-107); GLUCOSE 147 mg/dL (74-106); POTASSIUM - SERUM 4.1 mmol/L (3.5-5.1); SODIUM 132 mmol/L (136-145); UREA NITROGEN 28 mg/dL (7-18); eGFR NON AFRICAN AMERICAN 76 mL/min (90-120)
[2017-08-24] VITALS (24 sets, daily range): BP systolic 93–133; BP diastolic 45–80
[2017-08-24 06:34] LABS: HEMATOCRIT 30.6 % (42.0-54.0); HEMOGLOBIN 9.9 g/dL (13.5-17.5); MCH 29.2 pg (26.0-34.0); MCHC 32.4 g/dL (31.0-37.0); MCV 90.3 fL (80.0-100.0); MEAN PLATELET VOLUME 10.8 fL (7.4-10.4); RBC 3.39 10x6/uL (4.20-6.10); RDW 16.8 % (11.5-14.5); WBC 8.1 10x3/uL (4.8-10.8)
[2017-08-24 07:02] LABS: CALC OSMOLALITY 270 mosm/kg (275-300); CALCIUM 7.8 mg/dL (8.5-10.1); CARBON DIOXIDE 33.6 mmol/L (21.0-32.0); CHLORIDE - SERUM 96 mmol/L (98-107); CREATININE - SERUM 0.9 mg/dL (0.6-1.3); GLUCOSE 129 mg/dL (74-106); POTASSIUM - SERUM 3.7 mmol/L (3.5-5.1); SODIUM 133 mmol/L (136-145); eGFR NON AFRICAN AMERICAN 86 mL/min (90-120)
[2017-08-24 07:06] LABS: UREA NITROGEN 20 mg/dL (7-18)
[2017-08-25] VITALS (23 sets, daily range): BP systolic 84–156; BP diastolic 49–91
[2017-08-25 06:33] LABS: BASOPHILS 0.1 % (0-2); EOSINOPHILS 0.5 % (0-7); HEMATOCRIT 32.2 % (42.0-54.0); HEMOGLOBIN 10.5 g/dL (13.5-17.5); IMMATURE GRANULOCYTES 0.3 % (0-5); LYMPHOCYTES 24.6 % (15-50); MCH 29.3 pg (26.0-34.0); MCHC 32.6 g/dL (31.0-37.0); MCV 89.9 fL (80.0-100.0); MEAN PLATELET VOLUME 10.7 fL (7.4-10.4); MONOCYTES 6.9 % (2-11); NEUTROPHILS 67.6 % (40-80); PLATELET COUNT 216 10x3/uL (130-400); RBC 3.58 10x6/uL (4.20-6.10); RDW 16.6 % (11.5-14.5); WBC 7.8 10x3/uL (4.8-10.8)
[2017-08-25 07:05] LABS: CALC OSMOLALITY 269 mosm/kg (275-300); CALCIUM 7.7 mg/dL (8.5-10.1); CARBON DIOXIDE 35.2 mmol/L (21.0-32.0); CHLORIDE - SERUM 96 mmol/L (98-107); GLUCOSE 137 mg/dL (74-106); MAGNESIUM - SERUM 1.9 mg/dL (1.8-2.4); PHOSPHOROUS 3.5 mg/dL (2.5-4.9); POTASSIUM - SERUM 3.5 mmol/L (3.5-5.1); SODIUM 133 mmol/L (136-145); UREA NITROGEN 19 mg/dL (7-18); eGFR NON AFRICAN AMERICAN 76 mL/min (90-120)
[2017-08-26] VITALS (26 sets, daily range): BP systolic 93–129; BP diastolic 46–69
[2017-08-26 07:58] LABS: PROTEIN - SERUM 4.9 g/dL (6.4-8.2)
[2017-08-26 08:06] LABS: APTT 29.3 SECONDS (22.8-39.4); INR 1.1 (0.85-1.17); PROTIME 13.8 SECONDS (11.6-15.0)
[2017-08-26 13:23] LABS: PROTEIN - BODY FLUID 2.3 G/DL
[2017-08-26 14:39] LABS: MACROPHAGES BF 12 %; MESOTHELIALS BF 7 %; NEUT - BF 45 %
[2017-08-27] VITALS (27 sets, daily range): BP systolic 86–128; BP diastolic 52–75
[2017-08-27 07:04] LABS: ALBUMIN 1.7 g/dL (3.4-5.0); ANION GAP 10.7 mmol/L (8-16); BILIRUBIN - TOTAL 1.2 mg/dL (0.2-1.3); CARBON DIOXIDE 28.8 mmol/L (21.0-32.0); CREATININE - SERUM 1.5 mg/dL (0.6-1.3); POTASSIUM - SERUM 5.5 mmol/L (3.5-5.1); PROTEIN - SERUM 5.1 g/dL (6.4-8.2)
[2017-08-27 07:05] LABS: HEMATOCRIT 38.5 % (42.0-54.0); HEMOGLOBIN 12.5 g/dL (13.5-17.5); MCH 29.6 pg (26.0-34.0); MCHC 32.5 g/dL (31.0-37.0); MCV 91.2 fL (80.0-100.0); MEAN PLATELET VOLUME 10.9 fL (7.4-10.4); PLATELET COUNT 313 10x3/uL (130-400); RBC 4.22 10x6/uL (4.20-6.10); RDW 17.7 % (11.5-14.5); WBC 26.5 10x3/uL (4.8-10.8)
[2017-08-27 07:58] LABS: LYMPHOCYTES 8 % (15-50); MONOCYTES 2 % (2-11); NEUTROPHILS 89 % (40-80); PLATELET MORPHOLOGY NORMAL PLT MORPH
[2017-08-27 07:59] LABS: PLATELET ESTIMATE NORMAL
[2017-08-27 08:00] LABS: HYPOCHROMASIA 1+
[2017-08-27 11:42] LABS: BASOPHILS 0.1 % (0-2); EOSINOPHILS 0 % (0-7); HEMATOCRIT 36.5 % (42.0-54.0); IMMATURE GRANULOCYTES 0.5 % (0-5); LYMPHOCYTES 15.6 % (15-50); MCH 29.5 pg (26.0-34.0); MCHC 32.9 g/dL (31.0-37.0); MCV 89.7 fL (80.0-100.0); MEAN PLATELET VOLUME 10.8 fL (7.4-10.4); MONOCYTES 5.9 % (2-11); NEUTROPHILS 77.9 % (40-80); PLATELET COUNT 306 10x3/uL (130-400); RBC 4.07 10x6/uL (4.20-6.10); RDW 17.4 % (11.5-14.5); WBC 25.6 10x3/uL (4.8-10.8)
[2017-08-27 11:56] LABS: ANION GAP 8.6 mmol/L (8-16); CALCIUM 7.6 mg/dL (8.5-10.1); CARBON DIOXIDE 31.7 mmol/L (21.0-32.0); CREATININE - SERUM 1.6 mg/dL (0.6-1.3); POTASSIUM - SERUM 5.3 mmol/L (3.5-5.1)
[2017-08-28] VITALS (30 sets, daily range): BP systolic 77–152; BP diastolic 40–63
[2017-08-28 06:10] LABS: BASOPHILS 0.1 % (0-2); EOSINOPHILS 0 % (0-7); HEMATOCRIT 32.7 % (42.0-54.0); HEMOGLOBIN 10.7 g/dL (13.5-17.5); IMMATURE GRANULOCYTES 0.5 % (0-5); LYMPHOCYTES 17.6 % (15-50); MCH 29.2 pg (26.0-34.0); MCHC 32.7 g/dL (31.0-37.0); MCV 89.3 fL (80.0-100.0); MEAN PLATELET VOLUME 10.5 fL (7.4-10.4); NEUTROPHILS 74.8 % (40-80); RBC 3.66 10x6/uL (4.20-6.10); RDW 17.2 % (11.5-14.5)
[2017-08-28 06:11] LABS: PLATELET COUNT 238 10x3/uL (130-400); WBC 15.4 10x3/uL (4.8-10.8)
[2017-08-28 06:26] LABS: ALBUMIN 1.4 g/dL (3.4-5.0); ANION GAP 8.7 mmol/L (8-16); BILIRUBIN - TOTAL 0.83 mg/dL (0.2-1.3); CARBON DIOXIDE 29.1 mmol/L (21.0-32.0); CREATININE - SERUM 1.4 mg/dL (0.6-1.3); MAGNESIUM - SERUM 2.2 mg/dL (1.8-2.4); PHOSPHOROUS 3.9 mg/dL (2.5-4.9); POTASSIUM - SERUM 4.8 mmol/L (3.5-5.1); PROTEIN - SERUM 4.8 g/dL (6.4-8.2)
[2017-08-28 12:16] LABS: FUNGUS STAIN Final report (())
[2017-08-28 12:53] LABS: HEMATOCRIT 33.6 % (42.0-54.0); HEMOGLOBIN 11.1 g/dL (13.5-17.5); MCV 90.8 fL (80.0-100.0); MEAN PLATELET VOLUME 10.9 fL (7.4-10.4); RBC 3.7 10x6/uL (4.20-6.10); RDW 17.4 % (11.5-14.5); WBC 20.6 10x3/uL (4.8-10.8)
[2017-08-28 12:59] LABS: APTT 28.9 SECONDS (22.8-39.4); INR 1.35 (0.85-1.17); PROTIME 16.2 SECONDS (11.6-15.0)
[2017-08-28 15:21] LABS: AFB SPECIMEN PROCESSING Concentration (())
[2017-08-29] VITALS (24 sets, daily range): BP systolic 87–147; BP diastolic 31–81
[2017-08-29 02:17] LABS: HEMATOCRIT 27.8 % (42.0-54.0); HEMOGLOBIN 9.1 g/dL (13.5-17.5); MCH 29.4 pg (26.0-34.0); MCHC 32.7 g/dL (31.0-37.0); MCV 89.7 fL (80.0-100.0); MEAN PLATELET VOLUME 10.9 fL (7.4-10.4); RBC 3.1 10x6/uL (4.20-6.10); RDW 17.1 % (11.5-14.5)
[2017-08-29 08:57] LABS: BASOPHILS 0 % (0-2); EOSINOPHILS 0.1 % (0-7); HEMATOCRIT 27.1 % (42.0-54.0); HEMOGLOBIN 8.8 g/dL (13.5-17.5); IMMATURE GRANULOCYTES 0.3 % (0-5); MCH 29.3 pg (26.0-34.0); MCHC 32.5 g/dL (31.0-37.0); MCV 90.3 fL (80.0-100.0); MEAN PLATELET VOLUME 10.5 fL (7.4-10.4); MONOCYTES 4.7 % (2-11); NEUTROPHILS 74.9 % (40-80); PLATELET COUNT 205 10x3/uL (130-400); RDW 17.2 % (11.5-14.5); WBC 9.5 10x3/uL (4.8-10.8)
[2017-08-29 09:27] LABS: ALBUMIN 1.5 g/dL (3.4-5.0); ANION GAP 9.5 mmol/L (8-16); BILIRUBIN - TOTAL 0.57 mg/dL (0.2-1.3); CALCIUM 7.6 mg/dL (8.5-10.1); CARBON DIOXIDE 27.2 mmol/L (21.0-32.0); CREATININE - SERUM 1.4 mg/dL (0.6-1.3); MAGNESIUM - SERUM 2.3 mg/dL (1.8-2.4); PHOSPHOROUS 3.3 mg/dL (2.5-4.9); POTASSIUM - SERUM 4.7 mmol/L (3.5-5.1)
[2017-08-30] VITALS (25 sets, daily range): BP systolic 99–137; BP diastolic 42–65
[2017-08-30 02:25] LABS: HEMATOCRIT 25.9 % (42.0-54.0); HEMOGLOBIN 8.4 g/dL (13.5-17.5); MCH 29.5 pg (26.0-34.0); MCHC 32.4 g/dL (31.0-37.0); MCV 90.9 fL (80.0-100.0); MEAN PLATELET VOLUME 10.7 fL (7.4-10.4); RBC 2.85 10x6/uL (4.20-6.10); RDW 17.1 % (11.5-14.5); WBC 8.1 10x3/uL (4.8-10.8)
[2017-08-30 06:54] LABS: ALBUMIN 1.6 g/dL (3.4-5.0); BILIRUBIN - TOTAL 0.63 mg/dL (0.2-1.3); CALCIUM 7.6 mg/dL (8.5-10.1); CARBON DIOXIDE 29.3 mmol/L (21.0-32.0); CREATININE - SERUM 1.1 mg/dL (0.6-1.3); POTASSIUM - SERUM 4.3 mmol/L (3.5-5.1); PROTEIN - SERUM 4.6 g/dL (6.4-8.2)
[2017-08-31] VITALS (21 sets, daily range): BP systolic 92–141; BP diastolic 39–86
[2017-08-31 00:47] LABS: HEMATOCRIT 24.6 % (42.0-54.0); MCH 29.3 pg (26.0-34.0); MCHC 32.5 g/dL (31.0-37.0); MCV 90.1 fL (80.0-100.0); MEAN PLATELET VOLUME 9.9 fL (7.4-10.4); RBC 2.73 10x6/uL (4.20-6.10); WBC 7.4 10x3/uL (4.8-10.8)
[2017-08-31 06:23] LABS: BASOPHILS 0 % (0-2); EOSINOPHILS 0.1 % (0-7); IMMATURE GRANULOCYTES 0.4 % (0-5); MCV 90.6 fL (80.0-100.0); MEAN PLATELET VOLUME 10.3 fL (7.4-10.4); MONOCYTES 6.3 % (2-11); NEUTROPHILS 70.2 % (40-80); PLATELET COUNT 198 10x3/uL (130-400); RBC 2.76 10x6/uL (4.20-6.10); RDW 17.1 % (11.5-14.5); WBC 7.6 10x3/uL (4.8-10.8)
[2017-08-31 06:43] LABS: ALBUMIN 1.7 g/dL (3.4-5.0); ALKALINE PHOSPHATASE 82 U/L (46-116); ALT (SGPT) 31 U/L (10-68); BILIRUBIN - TOTAL 0.61 mg/dL (0.2-1.3); CALC OSMOLALITY 265 mosm/kg (275-300); CALCIUM 7.6 mg/dL (8.5-10.1); CARBON DIOXIDE 28.9 mmol/L (21.0-32.0); CHLORIDE - SERUM 98 mmol/L (98-107); GLUCOSE 148 mg/dL (74-106); MAGNESIUM - SERUM 2.1 mg/dL (1.8-2.4); POTASSIUM - SERUM 4.1 mmol/L (3.5-5.1); PROTEIN - SERUM 4.6 g/dL (6.4-8.2); SODIUM 130 mmol/L (136-145); UREA NITROGEN 18 mg/dL (7-18); eGFR NON AFRICAN AMERICAN 76 mL/min (90-120)
[2017-08-31 06:59] LABS: PHOSPHOROUS 2.3 mg/dL (2.5-4.9)
[2017-09-01] VITALS (22 sets, daily range): BP systolic 103–132; BP diastolic 34–93
[2017-09-01 03:23] LABS: HEMATOCRIT 25.9 % (42.0-54.0); HEMOGLOBIN 8.2 g/dL (13.5-17.5); MCH 28.9 pg (26.0-34.0); MCHC 31.7 g/dL (31.0-37.0); MCV 91.2 fL (80.0-100.0); MEAN PLATELET VOLUME 10.5 fL (7.4-10.4); RBC 2.84 10x6/uL (4.20-6.10); RDW 17.3 % (11.5-14.5); WBC 8.4 10x3/uL (4.8-10.8)
[2017-09-01 06:51] LABS: BASOPHILS 0 % (0-2); EOSINOPHILS 0.5 % (0-7); HEMATOCRIT 24.4 % (42.0-54.0); HEMOGLOBIN 7.8 g/dL (13.5-17.5); IMMATURE GRANULOCYTES 0.6 % (0-5); LYMPHOCYTES 22.9 % (15-50); MCH 29.2 pg (26.0-34.0); MCV 91.4 fL (80.0-100.0); MEAN PLATELET VOLUME 10.3 fL (7.4-10.4); MONOCYTES 8.1 % (2-11); NEUTROPHILS 67.9 % (40-80); PLATELET COUNT 201 10x3/uL (130-400); RBC 2.67 10x6/uL (4.20-6.10); RDW 17.3 % (11.5-14.5); WBC 7.8 10x3/uL (4.8-10.8)
[2017-09-01 07:07] LABS: ALBUMIN 1.7 g/dL (3.4-5.0); ALKALINE PHOSPHATASE 82 U/L (46-116); ALT (SGPT) 37 U/L (10-68); BILIRUBIN - TOTAL 0.64 mg/dL (0.2-1.3); CALC OSMOLALITY 263 mosm/kg (275-300); CALCIUM 7.6 mg/dL (8.5-10.1); CARBON DIOXIDE 29.2 mmol/L (21.0-32.0); CHLORIDE - SERUM 99 mmol/L (98-107); GLUCOSE 112 mg/dL (74-106); POTASSIUM - SERUM 4.4 mmol/L (3.5-5.1); PROTEIN - SERUM 4.6 g/dL (6.4-8.2); SODIUM 130 mmol/L (136-145); UREA NITROGEN 17 mg/dL (7-18); eGFR NON AFRICAN AMERICAN 76 mL/min (90-120)
[2017-09-01 14:10] LABS: INR 1.11 (0.85-1.17); PROTIME 13.9 SECONDS (11.6-15.0)
[2017-09-02] VITALS (23 sets, daily range): BP systolic 97–144; BP diastolic 40–70
[2017-09-02 02:05] LABS: HEMATOCRIT 25.1 % (42.0-54.0); HEMOGLOBIN 8.1 g/dL (13.5-17.5); MCH 29.6 pg (26.0-34.0); MCHC 32.3 g/dL (31.0-37.0); MCV 91.6 fL (80.0-100.0); MEAN PLATELET VOLUME 10.3 fL (7.4-10.4); RBC 2.74 10x6/uL (4.20-6.10); RDW 17.5 % (11.5-14.5); WBC 8.7 10x3/uL (4.8-10.8)
[2017-09-03] VITALS (24 sets, daily range): BP systolic 95–140; BP diastolic 36–59
[2017-09-03 06:27] LABS: BASOPHILS 0 % (0-2); EOSINOPHILS 1.2 % (0-7); HEMATOCRIT 25.5 % (42.0-54.0); HEMOGLOBIN 8.1 g/dL (13.5-17.5); IMMATURE GRANULOCYTES 0.3 % (0-5); LYMPHOCYTES 23.4 % (15-50); MCH 29.2 pg (26.0-34.0); MCHC 31.8 g/dL (31.0-37.0); MCV 92.1 fL (80.0-100.0); MEAN PLATELET VOLUME 10.3 fL (7.4-10.4); MONOCYTES 8.5 % (2-11); NEUTROPHILS 66.6 % (40-80); PLATELET COUNT 227 10x3/uL (130-400); RBC 2.77 10x6/uL (4.20-6.10); RDW 17.5 % (11.5-14.5); WBC 8.6 10x3/uL (4.8-10.8)
[2017-09-03 06:32] LABS: CALC OSMOLALITY 260 mosm/kg (275-300); CALCIUM 7.8 mg/dL (8.5-10.1); CARBON DIOXIDE 26.9 mmol/L (21.0-32.0); CHLORIDE - SERUM 98 mmol/L (98-107); CREATININE - SERUM 0.9 mg/dL (0.6-1.3); GLUCOSE 128 mg/dL (74-106); SODIUM 128 mmol/L (136-145); UREA NITROGEN 17 mg/dL (7-18); eGFR NON AFRICAN AMERICAN 86 mL/min (90-120)
[2017-09-04] VITALS (25 sets, daily range): BP systolic 90–133; BP diastolic 39–64
[2017-09-04 01:04] LABS: HEMATOCRIT 24.4 % (42.0-54.0); MCH 29.9 pg (26.0-34.0); MCHC 32.8 g/dL (31.0-37.0); MEAN PLATELET VOLUME 9.5 fL (7.4-10.4); RBC 2.68 10x6/uL (4.20-6.10); RDW 17.5 % (11.5-14.5); WBC 7.6 10x3/uL (4.8-10.8)
[2017-09-04 07:06] LABS: BASOPHILS 0.1 % (0-2); EOSINOPHILS 1.7 % (0-7); HEMATOCRIT 25.3 % (42.0-54.0); HEMOGLOBIN 8.1 g/dL (13.5-17.5); IMMATURE GRANULOCYTES 0.3 % (0-5); LYMPHOCYTES 22.1 % (15-50); MCH 29.5 pg (26.0-34.0); MEAN PLATELET VOLUME 9.8 fL (7.4-10.4); MONOCYTES 8.7 % (2-11); NEUTROPHILS 67.1 % (40-80); PLATELET COUNT 214 10x3/uL (130-400); RBC 2.75 10x6/uL (4.20-6.10); RDW 17.8 % (11.5-14.5); WBC 7.8 10x3/uL (4.8-10.8)
[2017-09-04 07:23] LABS: CALC OSMOLALITY 256 mosm/kg (275-300); CALCIUM 7.9 mg/dL (8.5-10.1); CHLORIDE - SERUM 98 mmol/L (98-107); CREATININE - SERUM 0.9 mg/dL (0.6-1.3); GLUCOSE 113 mg/dL (74-106); POTASSIUM - SERUM 4.8 mmol/L (3.5-5.1); SODIUM 127 mmol/L (136-145); UREA NITROGEN 16 mg/dL (7-18); eGFR NON AFRICAN AMERICAN 86 mL/min (90-120)
[2017-09-05] VITALS (22 sets, daily range): BP systolic 89–131; BP diastolic 43–55
[2017-09-05 06:25] LABS: BASOPHILS 0 % (0-2); EOSINOPHILS 1.3 % (0-7); HEMATOCRIT 23.9 % (42.0-54.0); HEMOGLOBIN 7.7 g/dL (13.5-17.5); IMMATURE GRANULOCYTES 0.3 % (0-5); LYMPHOCYTES 21.9 % (15-50); MCH 29.6 pg (26.0-34.0); MCHC 32.2 g/dL (31.0-37.0); MCV 91.9 fL (80.0-100.0); MEAN PLATELET VOLUME 9.9 fL (7.4-10.4); MONOCYTES 6.4 % (2-11); NEUTROPHILS 70.1 % (40-80); PLATELET COUNT 191 10x3/uL (130-400); RDW 17.6 % (11.5-14.5); WBC 6.3 10x3/uL (4.8-10.8)
[2017-09-05 06:42] LABS: CALC OSMOLALITY 256 mosm/kg (275-300); CALCIUM 7.8 mg/dL (8.5-10.1); CHLORIDE - SERUM 97 mmol/L (98-107); CREATININE - SERUM 0.8 mg/dL (0.6-1.3); GLUCOSE 117 mg/dL (74-106); MAGNESIUM - SERUM 2.1 mg/dL (1.8-2.4); POTASSIUM - SERUM 4.7 mmol/L (3.5-5.1); SODIUM 127 mmol/L (136-145); UREA NITROGEN 16 mg/dL (7-18); eGFR NON AFRICAN AMERICAN > 90 mL/min (90-120)
[2017-09-06] VITALS (25 sets, daily range): BP systolic 88–142; BP diastolic 43–94
[2017-09-06 05:56] LABS: BASOPHILS 0.1 % (0-2); EOSINOPHILS 0.9 % (0-7); HEMATOCRIT 24.6 % (42.0-54.0); HEMOGLOBIN 7.8 g/dL (13.5-17.5); IMMATURE GRANULOCYTES 0.4 % (0-5); LYMPHOCYTES 17.3 % (15-50); MCH 29.5 pg (26.0-34.0); MCHC 31.7 g/dL (31.0-37.0); MCV 93.2 fL (80.0-100.0); MONOCYTES 4.6 % (2-11); NEUTROPHILS 76.7 % (40-80); PLATELET COUNT 180 10x3/uL (130-400); RBC 2.64 10x6/uL (4.20-6.10); RDW 17.6 % (11.5-14.5); WBC 7.6 10x3/uL (4.8-10.8)
[2017-09-06 06:12] LABS: CALC OSMOLALITY 260 mosm/kg (275-300); CALCIUM 7.9 mg/dL (8.5-10.1); CARBON DIOXIDE 28.4 mmol/L (21.0-32.0); CHLORIDE - SERUM 97 mmol/L (98-107); CREATININE - SERUM 0.8 mg/dL (0.6-1.3); GLUCOSE 130 mg/dL (74-106); MAGNESIUM - SERUM 1.9 mg/dL (1.8-2.4); POTASSIUM - SERUM 4.9 mmol/L (3.5-5.1); SODIUM 128 mmol/L (136-145); UREA NITROGEN 19 mg/dL (7-18); eGFR NON AFRICAN AMERICAN > 90 mL/min (90-120)
[2017-09-07] VITALS (32 sets, daily range): BP systolic 100–129; BP diastolic 40–68
[2017-09-07 01:16] LABS: APPEARANCE HAZY (CLEAR); BACTERIA FEW /hpf (NONE SEEN); BILIRUBIN NEGATIVE (NEGATIVE); COLOR AMBER (YELLOW); EPITHELIAL CELLS 0-5 /hpf (0-5); GLUCOSE NEGATIVE (NEGATIVE); HYALINE CAST 0-5 /lpf (NONE SEEN); KETONE NEGATIVE (NEGATIVE); MUCUS <1+ /lpf (NONE SEEN); NITRITE NEGATIVE (NEGATIVE); PROTEIN 1+ mg/dL (NEGATIVE); RED CELLS - URINE 0-5 /hpf (0-5); UROBILINOGEN NORMAL (NORMAL); WHITE CELLS - URINE 0-5 /hpf (0-5)
[2017-09-07 01:17] LABS: CALCIUM OXALATE CRYSTALS OCC /hpf (NONE SEEN); URIC ACID CRYSTALS 0-5 /hpf (NONE SEEN)
[2017-09-07 06:34] LABS: BASOPHILS 0 % (0-2); EOSINOPHILS 0.9 % (0-7); HEMATOCRIT 21.7 % (42.0-54.0); IMMATURE GRANULOCYTES 0.4 % (0-5); LYMPHOCYTES 26.7 % (15-50); MCH 30.6 pg (26.0-34.0); MCHC 32.7 g/dL (31.0-37.0); MCV 93.5 fL (80.0-100.0); MEAN PLATELET VOLUME 10.4 fL (7.4-10.4); MONOCYTES 4.1 % (2-11); NEUTROPHILS 67.9 % (40-80); PLATELET COUNT 158 10x3/uL (130-400); RBC 2.32 10x6/uL (4.20-6.10); RDW 17.9 % (11.5-14.5); WBC 5.7 10x3/uL (4.8-10.8)
[2017-09-07 06:39] LABS: HEMOGLOBIN 7.1 g/dL (13.5-17.5)
[2017-09-07 06:55] LABS: CALC OSMOLALITY 263 mosm/kg (275-300); CALCIUM 7.7 mg/dL (8.5-10.1); CARBON DIOXIDE 27.4 mmol/L (21.0-32.0); CHLORIDE - SERUM 97 mmol/L (98-107); CREATININE - SERUM 0.8 mg/dL (0.6-1.3); GLUCOSE 126 mg/dL (74-106); POTASSIUM - SERUM 4.6 mmol/L (3.5-5.1); SODIUM 129 mmol/L (136-145); UREA NITROGEN 20 mg/dL (7-18); eGFR NON AFRICAN AMERICAN > 90 mL/min (90-120)
[2017-09-07 07:01] LABS: APTT 33.5 SECONDS (22.8-39.4); INR 1.47 (0.85-1.17); PROTIME 17.4 SECONDS (11.6-15.0)
[2017-09-07 14:41] LABS: HEMATOCRIT 23.1 % (42.0-54.0); MCH 30.2 pg (26.0-34.0); MCHC 32.5 g/dL (31.0-37.0); MCV 93.1 fL (80.0-100.0); MEAN PLATELET VOLUME 10.3 fL (7.4-10.4); RBC 2.48 10x6/uL (4.20-6.10); RDW 18.4 % (11.5-14.5); WBC 6.7 10x3/uL (4.8-10.8)
[2017-09-07 14:43] LABS: HEMOGLOBIN 7.5 g/dL (13.5-17.5)
[2017-09-08] VITALS (24 sets, daily range): BP systolic 102–154; BP diastolic 43–80
[2017-09-08 06:30] LABS: BASOPHILS 0.2 % (0-2); EOSINOPHILS 1.4 % (0-7); HEMATOCRIT 24.9 % (42.0-54.0); HEMOGLOBIN 8.1 g/dL (13.5-17.5); IMMATURE GRANULOCYTES 0.6 % (0-5); MCH 29.9 pg (26.0-34.0); MCHC 32.5 g/dL (31.0-37.0); MCV 91.9 fL (80.0-100.0); MEAN PLATELET VOLUME 10.7 fL (7.4-10.4); MONOCYTES 4.3 % (2-11); NEUTROPHILS 61.5 % (40-80); PLATELET COUNT 171 10x3/uL (130-400); RBC 2.71 10x6/uL (4.20-6.10); RDW 18.3 % (11.5-14.5); WBC 6.5 10x3/uL (4.8-10.8)
[2017-09-08 06:55] LABS: ALBUMIN 2.2 g/dL (3.4-5.0); ALKALINE PHOSPHATASE 111 U/L (46-116); ALT (SGPT) 26 U/L (10-68); BILIRUBIN - TOTAL 2.83 mg/dL (0.2-1.3); CALC OSMOLALITY 264 mosm/kg (275-300); CALCIUM 7.7 mg/dL (8.5-10.1); CARBON DIOXIDE 27.3 mmol/L (21.0-32.0); CHLORIDE - SERUM 98 mmol/L (98-107); CREATININE - SERUM 0.8 mg/dL (0.6-1.3); GLUCOSE 120 mg/dL (74-106); MAGNESIUM - SERUM 2.1 mg/dL (1.8-2.4); PHOSPHOROUS 2.2 mg/dL (2.5-4.9); POTASSIUM - SERUM 4.4 mmol/L (3.5-5.1); PROTEIN - SERUM 5.3 g/dL (6.4-8.2); SODIUM 130 mmol/L (136-145); UREA NITROGEN 21 mg/dL (7-18); eGFR NON AFRICAN AMERICAN > 90 mL/min (90-120)
[2017-09-09] VITALS (24 sets, daily range): BP systolic 90–136; BP diastolic 43–61
[2017-09-09 06:33] LABS: BASOPHILS 0.1 % (0-2); EOSINOPHILS 1.5 % (0-7); HEMATOCRIT 24.5 % (42.0-54.0); IMMATURE GRANULOCYTES 0.6 % (0-5); LYMPHOCYTES 31.5 % (15-50); MCH 30.5 pg (26.0-34.0); MCHC 32.7 g/dL (31.0-37.0); MCV 93.5 fL (80.0-100.0); MEAN PLATELET VOLUME 10.6 fL (7.4-10.4); MONOCYTES 4.1 % (2-11); NEUTROPHILS 62.2 % (40-80); PLATELET COUNT 165 10x3/uL (130-400); RBC 2.62 10x6/uL (4.20-6.10); RDW 18.6 % (11.5-14.5); WBC 7.8 10x3/uL (4.8-10.8)
[2017-09-09 06:57] LABS: ALBUMIN 2.1 g/dL (3.4-5.0); ALKALINE PHOSPHATASE 114 U/L (46-116); ALT (SGPT) 24 U/L (10-68); BILIRUBIN - TOTAL 2.16 mg/dL (0.2-1.3); CALC OSMOLALITY 269 mosm/kg (275-300); CALCIUM 7.8 mg/dL (8.5-10.1); CARBON DIOXIDE 26.5 mmol/L (21.0-32.0); CHLORIDE - SERUM 99 mmol/L (98-107); CREATININE - SERUM 0.9 mg/dL (0.6-1.3); GLUCOSE 128 mg/dL (74-106); PHOSPHOROUS 2.7 mg/dL (2.5-4.9); POTASSIUM - SERUM 4.2 mmol/L (3.5-5.1); PROTEIN - SERUM 5.3 g/dL (6.4-8.2); SODIUM 132 mmol/L (136-145); UREA NITROGEN 20 mg/dL (7-18); eGFR NON AFRICAN AMERICAN 86 mL/min (90-120)
[2017-09-09 15:44] LABS: HEMATOCRIT 24.7 % (42.0-54.0); MCH 30.4 pg (26.0-34.0); MCHC 32.4 g/dL (31.0-37.0); MCV 93.9 fL (80.0-100.0); MEAN PLATELET VOLUME 10.3 fL (7.4-10.4); RBC 2.63 10x6/uL (4.20-6.10); RDW 18.9 % (11.5-14.5)
[2017-09-09 15:45] LABS: WBC 11.5 10x3/uL (4.8-10.8)
[2017-09-10] VITALS (22 sets, daily range): BP systolic 94–150; BP diastolic 46–69
[2017-09-10 06:25] LABS: BASOPHILS 0.1 % (0-2); EOSINOPHILS 3.2 % (0-7); HEMATOCRIT 23.7 % (42.0-54.0); HEMOGLOBIN 7.7 g/dL (13.5-17.5); IMMATURE GRANULOCYTES 0.5 % (0-5); LYMPHOCYTES 31.1 % (15-50); MCH 30.4 pg (26.0-34.0); MCHC 32.5 g/dL (31.0-37.0); MCV 93.7 fL (80.0-100.0); MONOCYTES 5.8 % (2-11); NEUTROPHILS 59.3 % (40-80); PLATELET COUNT 146 10x3/uL (130-400); RBC 2.53 10x6/uL (4.20-6.10); RDW 19.2 % (11.5-14.5)
[2017-09-10 06:27] LABS: WBC 8.3 10x3/uL (4.8-10.8)
[2017-09-10 06:43] LABS: ANION GAP 10.3 mmol/L (8-16); CALCIUM 7.6 mg/dL (8.5-10.1); CARBON DIOXIDE 27.9 mmol/L (21.0-32.0); CREATININE - SERUM 1.1 mg/dL (0.6-1.3); MAGNESIUM - SERUM 1.9 mg/dL (1.8-2.4); PHOSPHOROUS 2.8 mg/dL (2.5-4.9); POTASSIUM - SERUM 4.2 mmol/L (3.5-5.1)
[2017-09-10 15:59] LABS: HEMATOCRIT 27.5 % (42.0-54.0); HEMOGLOBIN 9.2 g/dL (13.5-17.5); MCH 31.2 pg (26.0-34.0); MCHC 33.5 g/dL (31.0-37.0); MCV 93.2 fL (80.0-100.0); MEAN PLATELET VOLUME 9.6 fL (7.4-10.4); RBC 2.95 10x6/uL (4.20-6.10); RDW 20.3 % (11.5-14.5)
[2017-09-11] VITALS (27 sets, daily range): BP systolic 89–123; BP diastolic 36–61
[2017-09-11 07:56] LABS: HEMATOCRIT 26.9 % (42.0-54.0); HEMOGLOBIN 8.7 g/dL (13.5-17.5); MCH 30.6 pg (26.0-34.0); MCHC 32.3 g/dL (31.0-37.0); MCV 94.7 fL (80.0-100.0); MEAN PLATELET VOLUME 9.7 fL (7.4-10.4); RBC 2.84 10x6/uL (4.20-6.10); RDW 20.3 % (11.5-14.5); WBC 9.2 10x3/uL (4.8-10.8)
[2017-09-11 18:19] LABS: HEMATOCRIT 25.4 % (42.0-54.0); HEMOGLOBIN 8.1 g/dL (13.5-17.5); MCH 30.6 pg (26.0-34.0); MCHC 31.9 g/dL (31.0-37.0); MCV 95.8 fL (80.0-100.0); MEAN PLATELET VOLUME 10.1 fL (7.4-10.4); RBC 2.65 10x6/uL (4.20-6.10); RDW 20.8 % (11.5-14.5); WBC 9.7 10x3/uL (4.8-10.8)
[2017-09-12] VITALS (32 sets, daily range): BP systolic 90–124; BP diastolic 43–62
[2017-09-12 06:06] LABS: HEMATOCRIT 23.5 % (42.0-54.0); HEMOGLOBIN 7.7 g/dL (13.5-17.5); MCHC 32.8 g/dL (31.0-37.0); MCV 94.8 fL (80.0-100.0); MEAN PLATELET VOLUME 9.6 fL (7.4-10.4); RBC 2.48 10x6/uL (4.20-6.10); RDW 20.5 % (11.5-14.5)
[2017-09-12 06:10] LABS: WBC 6.5 10x3/uL (4.8-10.8)
[2017-09-12 06:42] LABS: CALC OSMOLALITY 270 mosm/kg (275-300); CALCIUM 7.7 mg/dL (8.5-10.1); CARBON DIOXIDE 30.2 mmol/L (21.0-32.0); CHLORIDE - SERUM 99 mmol/L (98-107); GLUCOSE 99 mg/dL (74-106); POTASSIUM - SERUM 3.8 mmol/L (3.5-5.1); SODIUM 134 mmol/L (136-145); UREA NITROGEN 21 mg/dL (7-18); eGFR NON AFRICAN AMERICAN 76 mL/min (90-120)
[2017-09-13] VITALS (24 sets, daily range): BP systolic 90–140; BP diastolic 49–75
[2017-09-13 06:15] LABS: MCH 30.4 pg (26.0-34.0); MCHC 32.7 g/dL (31.0-37.0); MCV 92.9 fL (80.0-100.0); MEAN PLATELET VOLUME 10.3 fL (7.4-10.4); RDW 19.9 % (11.5-14.5)
[2017-09-13 06:20] LABS: HEMATOCRIT 32.7 % (42.0-54.0); HEMOGLOBIN 10.7 g/dL (13.5-17.5); RBC 3.52 10x6/uL (4.20-6.10); WBC 8.2 10x3/uL (4.8-10.8)
[2017-09-13 06:24] LABS: APTT 30.9 SECONDS (22.8-39.4); INR 1.29 (0.85-1.17); PROTIME 15.6 SECONDS (11.6-15.0)
[2017-09-13 06:27] LABS: ANION GAP 8.4 mmol/L (8-16); CALCIUM 8.1 mg/dL (8.5-10.1); CARBON DIOXIDE 29.3 mmol/L (21.0-32.0); CREATININE - SERUM 1.1 mg/dL (0.6-1.3); POTASSIUM - SERUM 3.7 mmol/L (3.5-5.1)
[2017-09-14] VITALS (14 sets, daily range): BP systolic 93–140; BP diastolic 44–71
[2017-09-14 06:10] LABS: BASOPHILS 0.2 % (0-2); EOSINOPHILS 2.2 % (0-7); HEMATOCRIT 34.1 % (42.0-54.0); HEMOGLOBIN 11.2 g/dL (13.5-17.5); IMMATURE GRANULOCYTES 0.4 % (0-5); LYMPHOCYTES 26.9 % (15-50); MCH 31.1 pg (26.0-34.0); MCHC 32.8 g/dL (31.0-37.0); MCV 94.7 fL (80.0-100.0); MEAN PLATELET VOLUME 9.9 fL (7.4-10.4); MONOCYTES 6.6 % (2-11); NEUTROPHILS 63.7 % (40-80); PLATELET COUNT 133 10x3/uL (130-400); RDW 20.2 % (11.5-14.5); WBC 8.1 10x3/uL (4.8-10.8)
[2017-09-14 07:16] LABS: MAGNESIUM - SERUM 2.1 mg/dL (1.8-2.4); PHOSPHOROUS 3.3 mg/dL (2.5-4.9)
[2017-09-14 07:19] LABS: ANION GAP 10.4 mmol/L (8-16); CALCIUM 8.3 mg/dL (8.5-10.1); CARBON DIOXIDE 28.2 mmol/L (21.0-32.0); CREATININE - SERUM 1.3 mg/dL (0.6-1.3); POTASSIUM - SERUM 3.6 mmol/L (3.5-5.1)
[2017-09-14] MEDS ORDERED: ELIQUIS5 MG PO (13:52)
[2017-09-14] MEDS ORDERED: CORDARONE200 MG PO (13:53)
[2017-09-14] MEDS ORDERED: LASIX40 MG PO (13:55)
[2017-09-14] MEDS ORDERED: VOLTAREN100 GM TOPICAL (13:55)
[2017-09-14] MEDS ORDERED: TESSALON PERLE100 MG PO (13:56)
[2017-09-14] MEDS ORDERED: ROBITUSSIN DM 110 ML PO (13:57)
[2017-09-14] MEDS ORDERED: DULCOLAX10 MG/SUPP RC (13:58)
[2017-09-14] MEDS ORDERED: METAMUCIL PACKE1 PKT PO (13:58)
[2017-09-14] MEDS ORDERED: COLACE100 MG PO (13:58)
[2017-09-14] MEDS ORDERED: FLORAJEN3 CAPS460 MG PO (13:58)
[2017-09-14] MEDS ORDERED: ATROVENT 0.02%2.5 ML UPD (13:59)
[2017-09-14] MEDS ORDERED: XOPENEX 0.0.63 MG/3 UPD (13:59)
[2017-09-14] MEDS ORDERED: LEVAQUIN750 MG PO (14:01)
[2017-09-24 20:09] LABS: FUNGUS MYCOLOGY CULTURE Final report (())
[2017-10-22 15:25] LABS: ACID FAST CULTURE Negative (()); ACID FAST SMEAR Negative (())
== END 2017-09-14 17:19 | DRG 235 ==
LOC: D.CVICU 05:00 → D.SDCHOLD 05:00 → D.CVICU 10:02
PROVIDERS: Family Medicine; General Practice; Internal Medicine Cardiovascular Disease; Internal Medicine Pulmonary Disease; Thoracic Surgery (Cardiothoracic Vascular Surgery)
PROC: 021109W Bypass Coronary Artery, Two Arteries from Aorta with Autologous Venous Tissue, Open Approach (ICD-10-PCS; 2017-08-14)
PROC: 06BP0ZZ Excision of Right Saphenous Vein, Open Approach (ICD-10-PCS; 2017-08-14)
PROC: 5A1221Z Performance of Cardiac Output, Continuous (ICD-10-PCS; 2017-08-14)
PROC: B24BZZ4 Ultrasonography of Heart with Aorta, Transesophageal (ICD-10-PCS; 2017-08-14)
PROC: 02100ZC Bypass Coronary Artery, One Artery from Thoracic Artery, Open Approach (ICD-10-PCS; principal; 2017-08-14 07:30)
PROC: 5A09357 Assistance with Respiratory Ventilation, Less than 24 Consecutive Hours, Continuous Positive Airway Pressure (ICD-10-PCS; 2017-08-19)
PROC: 05HY33Z Insertion of Infusion Device into Upper Vein, Percutaneous Approach (ICD-10-PCS; 2017-08-25)
PROC: 0W9B3ZZ Drainage of Left Pleural Cavity, Percutaneous Approach (ICD-10-PCS; 2017-08-26)
PROC: 0W9B30Z Drainage of Left Pleural Cavity with Drainage Device, Percutaneous Approach (ICD-10-PCS; 2017-08-27)
PROC: 0W9B30Z Drainage of Left Pleural Cavity with Drainage Device, Percutaneous Approach (ICD-10-PCS; 2017-09-01)
PROC: 0W9B3ZZ Drainage of Left Pleural Cavity, Percutaneous Approach (ICD-10-PCS; 2017-09-07)
DX: I25.119 Atherosclerotic heart disease of native coronary artery with unspecified angina pectoris (principal); I63.9 Cerebral infarction, unspecified; J86.9 Pyothorax without fistula; I26.99 Other pulmonary embolism without acute cor pulmonale; J96.21 Acute and chronic respiratory failure with hypoxia; J96.22 Acute and chronic respiratory failure with hypercapnia; D62 Acute posthemorrhagic anemia; J94.2 Hemothorax; G45.9 Transient cerebral ischemic attack, unspecified; J81.1 Chronic pulmonary edema; J90 Pleural effusion, not elsewhere classified; E87.1 Hypo-osmolality and hyponatremia; I69.354 Hemiplegia and hemiparesis following cerebral infarction affecting left non-dominant side; I10 Essential (primary) hypertension; E78.5 Hyperlipidemia, unspecified; E11.9 Type 2 diabetes mellitus without complications; R29.810 Facial weakness; D69.6 Thrombocytopenia, unspecified; Z85.46 Personal history of malignant neoplasm of prostate; J44.9 Chronic obstructive pulmonary disease, unspecified; I73.9 Peripheral vascular disease, unspecified; I48.91 Unspecified atrial fibrillation; Z95.1 Presence of aortocoronary bypass graft; H57.02 Anisocoria; R53.81 Other malaise; B96.89 Other specified bacterial agents as the cause of diseases classified elsewhere

== ENCOUNTER 2017-09-14 15:23 | Inpatient (IN) | payer MEDICARE, OTHER ==
[~2017-09-14] VITALS: Ht 177.8 cm; Wt 88.5 kg
--- NOTE | ~2017-09-14 | RHP ---
PATIENT: DESTINI MATT MEDICAL RECORD: [id number] ACCOUNT: [id number] [facility] AD[facility] DATE: 09/14/17 REHABILITATION HISTORY AND PHYSICAL EXAMINATION POST ADMISSION PHYSICIAN EXAMINATION POST-ADMISSION PHYSICAL EXAM AND HISTORY AND PHYSICAL DATE OF ADMISSION: 09/14/2017 ADMITTING DIAGNOSES: Right lacunar infarct with left body involvement. HISTORY OF PRESENT ILLNESS: The patient is an 82-year-old gentleman who is admitted to rehab with a right lacunar infarct. He has got a history of peripheral vascular disease and has undergone cardiac catheterization by Dr. Cunningham, involving evidence of significant calcified coronary artery disease. He was recommended CABG due to calcification appearing in the coronary arteries. He underwent a CABG and had the left internal thoracic artery take to LAD, reverse saphenous vein graft to the first diagonal, reverse saphenous vein graft to the obtuse marginal. Postoperatively, he has done well, developed a large 2-liter hemothorax, which required chest tube placement. He stabilized and then was noted to have facial droop and weakness of his left upper extremity. CT of his head showed interval development of a lacunar infarct involving the deep white matter and subcortical fibers of the posterior right frontal lobe consistent with patient's history of left-sided weakness. He has stable moderate atrophy and bilateral basal ganglia lacunar infarcts. He has been followed by general forecaster for recent vyuxo-qk-gbtlpaa hypoxic and hypercapnic respiratory failure, left pleural effusion, pulmonary edema, COPD, right lower lobe atelectasis and has been on BiPAP as needed, O2 p.r.n. to maintain saturations greater than 92%. Urology was consulted because he had difficult postop course which included a PE in his right lung and also left chest empyema. His chest was recently removed. When he had a PE, he was started on heparin and then put on Eliquis. It was at that time a gross hematuria was noted, at that time the Eliquis has been held and the urine has cleared up visibly. His urological history includes prostate cancer, for which he had a robotic radical prostatectomy by Dr. Stevenson in [place]. Consults were received from infectious disease and cardiology. The patient was continued to be followed by Dr. Camargo, the cardiovascular surgeon. According to his family prior to this admission, he was completely independent. He is max assist to total assist with ADLs and mobility, only ambulating 3 feet. He is regaining strength and standing, but has proximal muscle weakness. He will require intensive therapies including PT, OT and speech therapy in order to return back to his prior level of functioning. Comorbidities include hypertension, pleural effusion, acute hypoxic respiratory failure, left pleural effusion, pulmonary edema, status post coronary artery bypass grafting, coronary artery disease, peripheral vascular disease, diabetes, thrombocytopenia, blood loss anemia, hyperlipidemia, coronary artery disease, hypokalemia, hyperkalemia, empyema, hematuria, COPD, debility, and neuropathy. PAST MEDICAL HISTORY: Significant for CAD, peripheral vascular disease, osteoarthritis, prostate cancer, TIA, diabetes, hypertension, hyperlipidemia, renal artery branch occlusion. He has also had problems with his right eye. He has got a history of tricuspid regurgitation. HISTORY AND PHYSICAL [id number] DESTINI MATT PAST SURGICAL HISTORY: Includes coronary artery bypass grafting, knee arthroscopy and prostatectomy. ALLERGIES: CRESTOR, HYDROCHLOROTHIAZIDE, LIPITOR, LISINOPRIL AND NYSTATIN. MEDICATIONS: Current medications include Metamucil daily, metformin 500 mg daily, Levaquin 750 mg daily, Floranex daily, furosemide 40 mg b.i.d., beta-carotene 1 tab daily, aspirin chewable 81 mg daily, Xopenex updraft 0.63 q.6 hours p.r.n., Atrovent 0.5 mg q.6 hours as needed, Robitussin DM 10 cc t.i.d., Colace 100 mg b.i.d., Voltaren 2 grams topically t.i.d., Dulcolax 10 mg as needed, Tessalon Perles 100 mg t.i.d., Eliquis 5 mg b.i.d., and amiodarone 200 mg b.i.d. HABITS: No current alcohol or tobacco use. FAMILY HISTORY: Noncontributory. SOCIAL HISTORY: The patient hopes to return back home and get back to his prior level of functioning. REVIEW OF SYSTEMS: GENERAL: Does complain of weakness and fatigue. HEENT: Denies cold, cough, or congestion. CARDIOVASCULAR: Denies any chest pain other than with movement. LUNGS: Does complain of some shortness of breath. PHYSICAL EXAMINATION: VITAL SIGNS: Stable, afebrile. GENERAL: Elderly gentleman in no acute distress, alert upon exam. HEENT: Normocephalic and atraumatic. Mucosa moist. NECK: Supple. No lymphadenopathy. LUNGS: Clear in upper [place]. He does have decreased breath sounds in the bases. HEART: Regular rate and rhythm. ABDOMEN: Benign. EXTREMITIES: HE does have some peripheral edema. NEUROLOGIC: He does have noted proximal muscle weakness. ASSESSMENT: This is an 82-year-old gentleman admitted to the rehab with a working diagnosis of cerebrovascular accident, complicated by recent coronary artery bypass grafting. The patient has potential to make improvement. We instituted the following multidisciplinary therapies include, but not limited to physical, occupational, respiratory, speech, nutritional services, prosthetics and orthotics. Given his complex medical condition and risk for more complications, rehabilitation services cannot be provided at a low level of care such as a skilled nurse facility. PLAN: 1. Admit to [facility] for intensive inpatient therapy to include the following disciplines: A. Physical therapy to improve gait, all transfer skills and bed mobility to a modified independent level. B. Occupational therapy to improve activities of daily living to a modified independent level. C. Case management to assist with discharge planning and placement options. HISTORY AND PHYSICAL [id number] DESTINI MATT Nutrition to assist with nutritional needs. E. Rehabilitation nursing to assist in monitoring the patient's underlying medical conditions and to assist with any type of bowel or bladder management. 2. The patient's current medication and medical care will be continued. 3. The patient will be placed on standard fall precautions. 4. The patient's estimated length of stay is approximately 7-10 days. 5. We will discuss this patient during care team staff meeting tomorrow. We will go ahead and continue him on appropriate home medications and will follow along with Dr. Camargo. TRANSINT:[id number] Voice Confirmation ID: [id number] DOCUMENT ID: [id number] FATEMEH notes whether there has been none or any medical/functional change since admission: - No change since prescreen. FATEMEH attests patient continues to be appropriate for IRF: - Continues to be appropriate. PATRICK KELSEY MD at 1757 CC: [id number] DICTATION DATE: 09/15/17 0953 LAYOUT FORMER: 09/15/17 1234 DIS IN 10/03/17 [facility] [address] [place] [address]
--- NOTE | ~2017-09-14 | CN ---
PATIENT NAME:DESTINI NAIR MEDICAL RECORD: [id number] : 35 LOCATION:[id number] ADMIT DATE: 09/14/17 ACCOUNT: [id number] CONSULTING PHYSICIAN: BLAYNE ZAVALETA MD REFERRING PHYSICIAN: RAHAT ROMAN MD DATE OF CONSULTATION: 09/16/2017 CONSULT REQUESTING PHYSICIAN: Rahat Roman MD REASON FOR CONSULTATION: BiPAP management. HISTORY OF PRESENT ILLNESS: Mr. Nair is an 82-year-old gentleman who underwent CABG on 08/14/2017. Post-procedure, his course was complicated by the pulmonary edema, possible pneumonia. The patient did well. He was transferred to the rehab for rehabilitation program. He is feeling better. He was using BiPAP machine at night, but now the patient is refusing it as he is feeling a lot better. REVIEW OF SYSTEMS: As in history of present illness. PAST MEDICAL HISTORY: 1. Coronary artery disease. 2. Ex-smoker. 3. Suspect chronic obstructive pulmonary disease. 4. Peripheral vascular disease. 5. Osteoarthritis. 6. CA of the prostate. 7. History of transient ischemic attack. 8. Diabetes mellitus type 2. 9. Hypertension. 10. Hyperlipidemia. 11. Peripheral neuropathy. 12. History of tricuspid regurgitation. PAST SURGICAL HISTORY: 1. Prostatectomy. 2. Arthroscopic knee surgery. 3. He is now status post CABG. ALLERGIES: HE IS ALLERGIC TO CRESTOR, LIPITOR, HYDROCHLOROTHIAZIDE, LISINOPRIL, AND NYSTATIN. MEDICATIONS: In [employer] is reviewed. PERSONAL AND SOCIAL HISTORY: The patient is an ex-smoker. He is a nondrinker. FAMILY HISTORY: Noncontributory. PHYSICAL EXAMINATION: GENERAL: Now, the patient is lying comfortably in bed. He is not in acute distress. VITAL SIGNS: The blood pressure 127/65, pulse is 79, respirations 18, temperature 98.1, and SpO2 is 93% on room air. HEENT: Conjunctivae are pink. Sclerae are not icteric. NECK: The neck is supple, no JVD. CONSULT REPORT [id number] DESTINI NAIR CHEST: The chest excursion is minimal on both sides. There are basal crackles. No wheezing. HEART: Rhythm regular, normal sound, no murmur. ABDOMEN: The abdomen is soft, bowel sounds present. No hepatosplenomegaly. RECTAL: Deferred. EXTREMITIES: No cyanosis, no clubbing. There are 2+ pedal edema. CENTRAL NERVOUS SYSTEM: The patient is awake and alert. There is no obvious cranial nerve abnormality. The gait was not tested. IMPRESSION: 1. Acute hypoxic respiratory failure that has been improving. 2. Status post coronary artery bypass graft. 3. Pulmonary edema. This has been resolving. 4. Ex-smoker. 5. Suspect chronic obstructive pulmonary disease. 6. Coronary artery disease. 7. Type 2 diabetes mellitus. 8. Peripheral neuropathy. RECOMMENDATION: 1. Continue BiPAP at night p.r.n. 2. Xopenex and ipratropium nebulizer. 3. Check the chest radiograph. We will see the patient as needed. Dr. Roman, thank you for involving me in the care of Mr. Nair. TRANSINT:[id number] Voice Confirmation ID: [id number] DOCUMENT ID: [id number] BLAYNE ZAVALETA MD at 1110 CC: [id number] DICTATION DATE: 09/16/171801 GYN PHYSICIAN: 09/16/17 1834 ADM IN [facility] [address] [place] [address]
[~2017-09-14 15:23] MED LIST changes: +ATROVENT 0.02%2.5 ML UPD; +COLACE100 MG PO; +CORDARONE200 MG PO; +DULCOLAX10 MG/SUPP RC; +ELIQUIS5 MG PO; +FLORAJEN3 CAPS460 MG PO; +LASIX40 MG PO; +LEVAQUIN750 MG PO; +METAMUCIL PACKE1 PKT PO; +ROBITUSSIN DM 110 ML PO; +TESSALON PERLE100 MG PO; +VOLTAREN100 GM TOPICAL; +XOPENEX 0.0.63 MG/3 UPD
[2017-09-14 17:17] VITALS: BP 123/60
[2017-09-15 08:00] VITALS: BP 127/60
[2017-09-15 10:00] VITALS: Ht 177.8 cm; Wt 88.5 kg
[2017-09-15 11:40] LABS: BASOPHILS 0.2 % (0-2); EOSINOPHILS 1.2 % (0-7); HEMATOCRIT 33.5 % (42.0-54.0); IMMATURE GRANULOCYTES 0.3 % (0-5); LYMPHOCYTES 19.5 % (15-50); MCH 31.2 pg (26.0-34.0); MCHC 32.8 g/dL (31.0-37.0); MCV 94.9 fL (80.0-100.0); MEAN PLATELET VOLUME 9.7 fL (7.4-10.4); MONOCYTES 7.9 % (2-11); NEUTROPHILS 70.9 % (40-80); PLATELET COUNT 142 10x3/uL (130-400); RBC 3.53 10x6/uL (4.20-6.10); RDW 20.4 % (11.5-14.5); WBC 9.1 10x3/uL (4.8-10.8)
[2017-09-15 11:43] LABS: APPEARANCE HAZY (CLEAR); BILIRUBIN NEGATIVE (NEGATIVE); COLOR YELLOW (YELLOW); GLUCOSE NEGATIVE (NEGATIVE); KETONE NEGATIVE (NEGATIVE); NITRITE NEGATIVE (NEGATIVE); PROTEIN 1+ mg/dL (NEGATIVE); SPECIFIC GRAVITY 1.015 (1.005-1.020); UROBILINOGEN NORMAL (NORMAL)
[2017-09-15 11:46] LABS: BACTERIA MODERATE /hpf (NONE SEEN); EPITHELIAL CELLS 0-5 /hpf (0-5); GRANULAR CAST OCC /lpf (NONE SEEN); MUCUS <1+ /lpf (NONE SEEN); RED CELLS - URINE 25-50 /hpf (0-5); WHITE CELLS - URINE 25-50 /hpf (0-5)
[2017-09-15 12:09] LABS: CALCIUM 7.8 mg/dL (8.5-10.1); CARBON DIOXIDE 29.8 mmol/L (21.0-32.0); CREATININE - SERUM 1.2 mg/dL (0.6-1.3); POTASSIUM - SERUM 3.8 mmol/L (3.5-5.1)
[2017-09-15 20:15] VITALS: BP 111/63
[2017-09-16 08:00] VITALS: BP 127/65
[2017-09-16 08:39] LABS: BASOPHILS 0.1 % (0-2); EOSINOPHILS 1.5 % (0-7); HEMATOCRIT 33.7 % (42.0-54.0); HEMOGLOBIN 10.8 g/dL (13.5-17.5); IMMATURE GRANULOCYTES 0.3 % (0-5); LYMPHOCYTES 29.1 % (15-50); MCH 30.7 pg (26.0-34.0); MCV 95.7 fL (80.0-100.0); MONOCYTES 7.7 % (2-11); NEUTROPHILS 61.3 % (40-80); PLATELET COUNT 152 10x3/uL (130-400); RBC 3.52 10x6/uL (4.20-6.10); RDW 20.4 % (11.5-14.5); WBC 7.8 10x3/uL (4.8-10.8)
[2017-09-16 08:53] LABS: ANION GAP 8.7 mmol/L (8-16); CREATININE - SERUM 1.2 mg/dL (0.6-1.3); POTASSIUM - SERUM 3.7 mmol/L (3.5-5.1)
[2017-09-16 19:00] VITALS: BP 126/69
[2017-09-17 08:00] VITALS: BP 106/57
[2017-09-17 19:00] VITALS: BP 129/63
[2017-09-18 07:12] LABS: BASOPHILS 0.2 % (0-2); EOSINOPHILS 1.4 % (0-7); HEMATOCRIT 31.2 % (42.0-54.0); HEMOGLOBIN 10.1 g/dL (13.5-17.5); IMMATURE GRANULOCYTES 0.3 % (0-5); LYMPHOCYTES 30.9 % (15-50); MCH 30.8 pg (26.0-34.0); MCHC 32.4 g/dL (31.0-37.0); MCV 95.1 fL (80.0-100.0); MEAN PLATELET VOLUME 9.8 fL (7.4-10.4); MONOCYTES 7.8 % (2-11); NEUTROPHILS 59.4 % (40-80); PLATELET COUNT 159 10x3/uL (130-400); RBC 3.28 10x6/uL (4.20-6.10); RDW 19.7 % (11.5-14.5); WBC 6.6 10x3/uL (4.8-10.8)
[2017-09-18 07:26] LABS: CALC OSMOLALITY 267 mosm/kg (275-300); CALCIUM 8.1 mg/dL (8.5-10.1); CARBON DIOXIDE 32.3 mmol/L (21.0-32.0); CHLORIDE - SERUM 95 mmol/L (98-107); GLUCOSE 106 mg/dL (74-106); POTASSIUM - SERUM 3.4 mmol/L (3.5-5.1); SODIUM 132 mmol/L (136-145); UREA NITROGEN 22 mg/dL (7-18); eGFR NON AFRICAN AMERICAN 76 mL/min (90-120)
[2017-09-18 08:00] VITALS: BP 105/60
[2017-09-18 19:00] VITALS: BP 133/65
[2017-09-20 07:51] VITALS: BP 113/63
[2017-09-20 19:50] VITALS: BP 107/54
[2017-09-21 07:18] LABS: BASOPHILS 0.2 % (0-2); EOSINOPHILS 2.6 % (0-7); HEMOGLOBIN 10.1 g/dL (13.5-17.5); IMMATURE GRANULOCYTES 0.2 % (0-5); LYMPHOCYTES 31.6 % (15-50); MCH 31.2 pg (26.0-34.0); MCHC 32.6 g/dL (31.0-37.0); MCV 95.7 fL (80.0-100.0); MEAN PLATELET VOLUME 9.7 fL (7.4-10.4); MONOCYTES 7.2 % (2-11); NEUTROPHILS 58.2 % (40-80); PLATELET COUNT 174 10x3/uL (130-400); RBC 3.24 10x6/uL (4.20-6.10); RDW 19.7 % (11.5-14.5); WBC 5.9 10x3/uL (4.8-10.8)
[2017-09-21 07:35] LABS: CALC OSMOLALITY 268 mosm/kg (275-300); CARBON DIOXIDE 35.1 mmol/L (21.0-32.0); CHLORIDE - SERUM 96 mmol/L (98-107); GLUCOSE 106 mg/dL (74-106); POTASSIUM - SERUM 3.3 mmol/L (3.5-5.1); SODIUM 133 mmol/L (136-145); UREA NITROGEN 20 mg/dL (7-18); eGFR NON AFRICAN AMERICAN 76 mL/min (90-120)
[2017-09-21 08:23] VITALS: BP 136/74
[2017-09-21 19:00] VITALS: BP 123/59
[2017-09-22 08:28] VITALS: BP 109/55
[2017-09-22 19:00] VITALS: BP 106/60
[2017-09-23 07:02] LABS: BASOPHILS 0.2 % (0-2); EOSINOPHILS 3.3 % (0-7); HEMATOCRIT 33.9 % (42.0-54.0); HEMOGLOBIN 10.9 g/dL (13.5-17.5); IMMATURE GRANULOCYTES 0.3 % (0-5); LYMPHOCYTES 32.5 % (15-50); MCH 31.1 pg (26.0-34.0); MCHC 32.2 g/dL (31.0-37.0); MCV 96.6 fL (80.0-100.0); MONOCYTES 7.9 % (2-11); NEUTROPHILS 55.8 % (40-80); PLATELET COUNT 205 10x3/uL (130-400); RBC 3.51 10x6/uL (4.20-6.10); WBC 6.1 10x3/uL (4.8-10.8)
[2017-09-23 07:20] LABS: CALC OSMOLALITY 273 mosm/kg (275-300); CALCIUM 8.5 mg/dL (8.5-10.1); CARBON DIOXIDE 34.6 mmol/L (21.0-32.0); CHLORIDE - SERUM 98 mmol/L (98-107); GLUCOSE 113 mg/dL (74-106); PHOSPHOROUS 3.6 mg/dL (2.5-4.9); POTASSIUM - SERUM 4.1 mmol/L (3.5-5.1); SODIUM 135 mmol/L (136-145); UREA NITROGEN 22 mg/dL (7-18); eGFR NON AFRICAN AMERICAN 76 mL/min (90-120)
[2017-09-23 08:19] VITALS: BP 106/61
[2017-09-23 19:00] VITALS: BP 112/61
[2017-09-24 08:25] VITALS: BP 101/53
[2017-09-24 19:00] VITALS: BP 119/68
[2017-09-25 05:54] LABS: BASOPHILS 0.1 % (0-2); EOSINOPHILS 2.9 % (0-7); HEMATOCRIT 33.1 % (42.0-54.0); HEMOGLOBIN 10.8 g/dL (13.5-17.5); IMMATURE GRANULOCYTES 0.1 % (0-5); LYMPHOCYTES 32.7 % (15-50); MCH 31.3 pg (26.0-34.0); MCHC 32.6 g/dL (31.0-37.0); MCV 95.9 fL (80.0-100.0); MEAN PLATELET VOLUME 9.8 fL (7.4-10.4); MONOCYTES 8.7 % (2-11); NEUTROPHILS 55.5 % (40-80); PLATELET COUNT 228 10x3/uL (130-400); RBC 3.45 10x6/uL (4.20-6.10); WBC 7.2 10x3/uL (4.8-10.8)
[2017-09-25 06:12] LABS: ANION GAP 8.2 mmol/L (8-16); CALCIUM 8.5 mg/dL (8.5-10.1); CARBON DIOXIDE 33.2 mmol/L (21.0-32.0); CREATININE - SERUM 1.2 mg/dL (0.6-1.3); POTASSIUM - SERUM 4.4 mmol/L (3.5-5.1)
[2017-09-25 08:14] VITALS: BP 118/63
[2017-09-25 19:00] VITALS: BP 123/65
[2017-09-27 08:00] VITALS: BP 135/84
[2017-09-27 20:00] VITALS: BP 126/71
[2017-09-28 07:28] LABS: BASOPHILS 0.3 % (0-2); EOSINOPHILS 2.8 % (0-7); HEMATOCRIT 33.1 % (42.0-54.0); IMMATURE GRANULOCYTES 0.3 % (0-5); LYMPHOCYTES 29.7 % (15-50); MCH 31.8 pg (26.0-34.0); MCHC 33.2 g/dL (31.0-37.0); MCV 95.7 fL (80.0-100.0); MEAN PLATELET VOLUME 9.8 fL (7.4-10.4); MONOCYTES 8.4 % (2-11); NEUTROPHILS 58.5 % (40-80); PLATELET COUNT 219 10x3/uL (130-400); RBC 3.46 10x6/uL (4.20-6.10); RDW 20.1 % (11.5-14.5); WBC 6.8 10x3/uL (4.8-10.8)
[2017-09-28 07:45] LABS: ANION GAP 10.1 mmol/L (8-16); CALCIUM 8.7 mg/dL (8.5-10.1); CARBON DIOXIDE 31.7 mmol/L (21.0-32.0); CREATININE - SERUM 1.1 mg/dL (0.6-1.3); POTASSIUM - SERUM 3.8 mmol/L (3.5-5.1)
[2017-09-28 08:00] VITALS: BP 119/74
[2017-09-28 19:00] VITALS: BP 133/71
[2017-09-29 08:22] VITALS: BP 90/55
[2017-09-29 19:00] VITALS: BP 104/58
[2017-09-30 07:22] LABS: BASOPHILS 0.3 % (0-2); EOSINOPHILS 5.9 % (0-7); HEMATOCRIT 33.7 % (42.0-54.0); HEMOGLOBIN 11.2 g/dL (13.5-17.5); IMMATURE GRANULOCYTES 0.2 % (0-5); LYMPHOCYTES 32.9 % (15-50); MCH 32.1 pg (26.0-34.0); MCHC 33.2 g/dL (31.0-37.0); MCV 96.6 fL (80.0-100.0); MEAN PLATELET VOLUME 9.8 fL (7.4-10.4); NEUTROPHILS 51.7 % (40-80); PLATELET COUNT 217 10x3/uL (130-400); RBC 3.49 10x6/uL (4.20-6.10); WBC 6.6 10x3/uL (4.8-10.8)
[2017-09-30 07:41] LABS: ANION GAP 9.9 mmol/L (8-16); CALCIUM 8.6 mg/dL (8.5-10.1); CARBON DIOXIDE 31.9 mmol/L (21.0-32.0); CREATININE - SERUM 1.1 mg/dL (0.6-1.3); POTASSIUM - SERUM 3.8 mmol/L (3.5-5.1)
[2017-09-30 08:16] VITALS: BP 103/60
[2017-09-30 19:00] VITALS: BP 100/57
[2017-10-01 08:00] VITALS: BP 102/58
[2017-10-01 19:52] VITALS: BP 101/58
[2017-10-02 07:00] LABS: BASOPHILS 0.2 % (0-2); EOSINOPHILS 4.6 % (0-7); HEMATOCRIT 33.1 % (42.0-54.0); HEMOGLOBIN 10.9 g/dL (13.5-17.5); IMMATURE GRANULOCYTES 0.2 % (0-5); LYMPHOCYTES 29.6 % (15-50); MCH 31.8 pg (26.0-34.0); MCHC 32.9 g/dL (31.0-37.0); MCV 96.5 fL (80.0-100.0); MEAN PLATELET VOLUME 9.6 fL (7.4-10.4); MONOCYTES 8.2 % (2-11); NEUTROPHILS 57.2 % (40-80); PLATELET COUNT 207 10x3/uL (130-400); RBC 3.43 10x6/uL (4.20-6.10); RDW 19.7 % (11.5-14.5); WBC 5.6 10x3/uL (4.8-10.8)
[2017-10-02 07:17] LABS: CALC OSMOLALITY 270 mosm/kg (275-300); CALCIUM 8.5 mg/dL (8.5-10.1); CHLORIDE - SERUM 97 mmol/L (98-107); GLUCOSE 114 mg/dL (74-106); POTASSIUM - SERUM 3.7 mmol/L (3.5-5.1); SODIUM 134 mmol/L (136-145); UREA NITROGEN 18 mg/dL (7-18); eGFR NON AFRICAN AMERICAN 76 mL/min (90-120)
[2017-10-02 08:00] VITALS: BP 120/66
[2017-10-02] MEDS ORDERED: K-DUR20 MEQ PO (08:44)
[2017-10-02 19:55] VITALS: BP 95/52
[2017-10-03 08:00] VITALS: BP 94/50
== END 2017-10-03 13:37 | DRG 56 ==
LOC: D.REHAB 15:23
PROVIDERS: Emergency Medicine
DX: I69.354 Hemiplegia and hemiparesis following cerebral infarction affecting left non-dominant side (principal); J96.01 Acute respiratory failure with hypoxia; J86.9 Pyothorax without fistula; J90 Pleural effusion, not elsewhere classified; J81.1 Chronic pulmonary edema; I10 Essential (primary) hypertension; I25.10 Atherosclerotic heart disease of native coronary artery without angina pectoris; Z95.1 Presence of aortocoronary bypass graft; D69.6 Thrombocytopenia, unspecified; E11.42 Type 2 diabetes mellitus with diabetic polyneuropathy; E78.5 Hyperlipidemia, unspecified; E87.6 Hypokalemia; J44.9 Chronic obstructive pulmonary disease, unspecified; R53.81 Other malaise; R31.9 Hematuria, unspecified

== ENCOUNTER → 2018-07-06 14:27 | Outpatient (CLI) | payer MEDICARE, OTHER ==
[2017-09-15 10:00] VITALS: BMI 27.9
[~2018-07-06 14:27] MED LIST changes: +K-DUR20 MEQ PO
== END | disposition home or self-care (01) ==
LOC: D.US 07-05 14:00
PROVIDERS: ATTEND Internal Medicine Cardiovascular Disease
DX: M79.606 Pain in leg, unspecified (principal); I73.9 Peripheral vascular disease, unspecified

== ENCOUNTER → 2018-12-10 07:39 | Outpatient (CLI) | payer MEDICARE, OTHER ==
[2017-09-15 10:00] VITALS: BMI 27.9
== END | disposition home or self-care (01) ==
LOC: D.MRI 07:39
PROVIDERS: ATTEND Internal Medicine Cardiovascular Disease
DX: I70.213 Atherosclerosis of native arteries of extremities with intermittent claudication, bilateral legs (principal)